=== PATIENT | female | born 1960 | race Caucasian/White ===

== ENCOUNTER 2017-11-22 12:27 | Emergency (ER) | payer MEDICARE ==
--- NOTE | 2017-11-22 14:20 | EDPHYS ---
Physician Documentation [facility] Name: Helena Tracy Age: 57 yrs Sex: Female : 1960 Arrival Date: 11/22/2017 Time: 12:31 Bed 18 Private MD: ED Physician Topher Rajan HPI: 11/22 14:16 This 57 yrs old Female presents to ER via Ambulatory with complaints of Ear kb Pain, Nausea. 14:16 The patient presents with drainage, that is purulent, hearing loss, partial, pain, kb moderate. The complaints affect the right ear and left ear. Onset: The symptoms/episode began/occurred last night. Modifying factors: The symptoms are alleviated by nothing, the symptoms are aggravated by nothing. Associated signs and symptoms: Pertinent positives: nausea. Severity of symptoms: At their worst the symptoms were moderate in the emergency department the symptoms are unchanged. The patient has not experienced similar symptoms in the past. The patient has not recently seen a physician. Historical: - Allergies: 12:42 Latex, Natural Rubber; hj 12:42 Medrol; hj 12:42 PENICILLINS; hj - Home Meds: 12:42 dicyclomine 10 mg Oral cap 1 cap 3 times per day [Active]; famotidine 40 mg Oral tab hj nightly [Active]; hydroxyzine HCl 25 mg Oral tab daily [Active]; Lexapro 20 mg Oral tab 1 tab once daily [Active]; Linzess 145 mcg Oral cap 1 cap once daily [Active]; losartan 100 mg Oral tab 1 tab once daily [Active]; metoprolol tartrate 25 mg Oral tab 1 tab once daily [Active]; omeprazole 40 mg Oral cpDR 1 cap once daily [Active]; trazodone 100 mg Oral tab nightly [Active]; Vistaril 25 mg Oral cap daily [Active]; - PMHx: 12:42 cervical radiculopathy; Depression; Diabetes - NIDDM; DVT; RLE; Hernia; Hypertension; hj Osteopenia; - PSHx: 12:42 Knee surgery; foot; Tubal ligation; hj - Immunization history:: Adult Immunizations up to date. - Social history:: Smoking status: Patient uses tobacco products, smokes one pack cigarettes per day. ROS: 14:16 Constitutional: Negative for fever, chills, and weight loss, Cardiovascular: Negative kb for chest pain, palpitations, and edema, Respiratory: Negative for shortness of breath, cough, wheezing, and pleuritic chest pain, Abdomen/GI: Negative for abdominal pain, vomiting, diarrhea, and constipation. +nausea MS/Extremity: Negative for injury and deformity, Skin: Negative for injury, rash, and discoloration. 14:16 ENT: Positive for drainage from ear(s), ear pain, hearing loss. 14:16 Neuro: Positive for dizziness. Exam: 14:16 Constitutional: This is a well developed, well nourished patient who is awake, alert, kb and in no acute distress. Head/Face: Normocephalic, atraumatic. Chest/axilla: Normal chest wall appearance and motion. Nontender with no deformity. No lesions are appreciated. Cardiovascular: Regular rate and rhythm with a normal S1 and S2. No gallops, murmurs, or rubs. Normal PMI, no JVD. No pulse deficits. Respiratory: Lungs have equal breath sounds bilaterally, clear to auscultation and percussion. No rales, rhonchi or wheezes noted. No increased work of breathing, no retractions or nasal flaring. Abdomen/GI: Soft, non-tender, with normal bowel sounds. No distension or tympany. No guarding or rebound. No evidence of tenderness throughout. Skin: Warm, dry with normal turgor. Normal color with no rashes, no lesions, and no evidence of cellulitis. MS/ Extremity: Pulses equal, no cyanosis. Neurovascular intact. Full, normal range of motion. Neuro: Awake and alert, GCS 15, oriented to person, place, time, and situation. Cranial nerves II-XII grossly intact. Motor strength 5/5 in all extremities. Sensory grossly intact. Cerebellar exam normal. Normal gait. 14:16 ENT: External ear(s): are unremarkable, Ear canal(s): are normal, TM's: bulging, bilaterally, fluid levels, bilaterally, Nose: is normal, Mouth: is normal. Vital Signs: 12:43 BP 151 / 99; Pulse 60; Resp 18; Temp 97.8(TE); Pulse Ox 100% on R/A; Weight 79.38 kg; hj Height 5 ft. 5 in. (165.10 cm); Pain 8/10; 14:13 BP 145 / 86; Pulse 68; Resp 16; Pulse Ox 99% on R/A; Pain 6/10; em 12:43 Body Mass Index 29.12 (79.38 kg, 165.10 cm) MDM: 14:01 Patient medically screened. kb 14:18 Data reviewed: vital signs, nurses notes. Data interpreted: Pulse oximetry: on room air kb is 100 %. Interpretation: normal. Counseling: I had a detailed discussion with the patient and/or guardian regarding: the historical points, exam findings, and any diagnostic results supporting the discharge/admit diagnosis, the need for outpatient follow up, an ENT specialist, a family practitioner, to return to the emergency department if symptoms worsen or persist or if there are any questions or concerns that arise at home. Administered Medications: No medications were administered Disposition: 18:39 Co-signature as Attending Physician, Topher Rajan MD. ma2 Disposition: 11/22/17 14:19 Discharged to Home. Impression: Otitis media, unspecified, bilateral. - Condition is Stable. - Discharge Instructions: Otitis Media, Adult, [id number]. - Prescriptions for Zithromax Z- Antonio 250 mg Oral Tablet - take 1 tablet by ORAL route as directed for 5 days Day 1 - take two (2) tablets one time. Day 2, 3, 4 , 5 take one (1) tablet once daily.; 6 tablet. - Medication Reconciliation Form, Thank You Letter, Antibiotic Education, Prescription Opioid Use form. - Follow up: Emergency Department; When: As needed; Reason: Worsening of condition. Follow up: Private Physician; When: 2 - 3 days; Reason: Recheck today's complaints, Continuance of care, Re-evaluation by your physician. Signatures: Nakita Rodriguez, STEWART-C CRUTCHING CONTRACTOR-Chase Whalen, DRESS FINISHER DRESS FINISHER Martin Post, RN RN Topher Renteria MD MD ma2
--- NOTE | 2017-11-22 14:20 | ER ---
Nurse's Notes [facility] Name: Helena Tracy Age: 57 yrs Sex: Female : 1960 Arrival Date: 11/22/2017 Time: 12:31 Bed 18 Private MD: Diagnosis: Otitis media, unspecified, bilateral Presentation: 11/22 12:40 Presenting complaint: Patient states: i woke up this morning with a green pus on my R hj ear and my L ear is hurting and i couldn't hear that much on both ears; denies fever, reports chills;. Transition of care: patient was not received from another setting of care. Onset of symptoms was November 22, 2017. Care prior to arrival: None. 12:40 Method Of Arrival: Ambulatory 12:40 Acuity: MARYANN 4 hj Triage Assessment: 12:42 General: Appears in no apparent distress. uncomfortable, Behavior is calm, cooperative, hj appropriate for age. Pain: Complains of pain in right ear and left ear Pain currently is 9 out of 10 on a pain scale. EENT: Reports pain in left ear and right ear. Historical: - Allergies: 12:42 Latex, Natural Rubber; hj 12:42 Medrol; hj 12:42 PENICILLINS; hj - Home Meds: 12:42 dicyclomine 10 mg Oral cap 1 cap 3 times per day [Active]; famotidine 40 mg Oral tab hj nightly [Active]; hydroxyzine HCl 25 mg Oral tab daily [Active]; Lexapro 20 mg Oral tab 1 tab once daily [Active]; Linzess 145 mcg Oral cap 1 cap once daily [Active]; losartan 100 mg Oral tab 1 tab once daily [Active]; metoprolol tartrate 25 mg Oral tab 1 tab once daily [Active]; omeprazole 40 mg Oral cpDR 1 cap once daily [Active]; trazodone 100 mg Oral tab nightly [Active]; Vistaril 25 mg Oral cap daily [Active]; - PMHx: 12:42 cervical radiculopathy; Depression; Diabetes - NIDDM; DVT; RLE; Hernia; Hypertension; hj Osteopenia; - PSHx: 12:42 Knee surgery; foot; Tubal ligation; hj - Immunization history:: Adult Immunizations up to date. - Social history:: Smoking status: Patient uses tobacco products, smokes one pack cigarettes per day. Screenin:00 Abuse screen: Denies threats or abuse. Nutritional screening: No deficits noted. em Tuberculosis screening: No symptoms or risk factors identified. Fall Risk None identified. Assessment: 14:00 General: Appears in no apparent distress. comfortable, Behavior is calm, cooperative. em General: Reports "woke up with green gunk in my hair this morning that was coming from my ears". Pain: Complains of pain in left ear and right ear Pain does not radiate. Pain currently is 8 out of 10 on a pain scale. Pain began 1 day ago. Neuro: Cardiovascular: Capillary refill < 3 seconds Patient's skin is warm and dry. Respiratory: Airway is patent Respiratory effort is even, unlabored, Respiratory pattern is regular, symmetrical. GI: Abdomen is round non-distended. : No signs and/or symptoms were reported regarding the genitourinary system. EENT: Ear canal w/ drainage noted from left ear and right ear. Derm: Skin is intact, Skin is pink, warm \\T\\ dry. Musculoskeletal: Range of motion: intact in all extremities. Vital Signs: 12:43 BP 151 / 99; Pulse 60; Resp 18; Temp 97.8(TE); Pulse Ox 100% on R/A; Weight 79.38 kg; hj Height 5 ft. 5 in. (165.10 cm); Pain 8/10; 14:13 BP 145 / 86; Pulse 68; Resp 16; Pulse Ox 99% on R/A; Pain 6/10; em 12:43 Body Mass Index 29.12 (79.38 kg, 165.10 cm) ED Course: 12:31 Patient arrived in ED. mr 12:41 Triage completed. hj 12:43 Arm band placed on left wrist. hj 13:55 Chase Whitaker LVN is Primary Nurse. em 14:00 Patient has correct armband on for positive identification. Bed in low position. Call em light in reach. Side rails up X2. 14:00 No provider procedures requiring assistance completed. Patient did not have IV access em during this emergency room visit. 14:01 Nakita Rodriguez FNP-C is PHCP. rafi 14:01 Topher Rajan MD is Attending Physician. kb Administered Medications: No medications were administered Outcome: 14:19 Discharge ordered by . rafi 14:26 Discharged to home ambulatory. em 14:26 Condition: good 14:26 Discharge instructions given to patient, Instructed on discharge instructions, follow up and referral plans. medication usage, Demonstrated understanding of instructions, follow-up care, medications, Prescriptions given X 1. 14:33 Patient left the ED. em Signatures: Nakita Rodriguez, STEWART-C DUST CONTROL ENGINEER-Serena Morton mr WhitakerChase, CARD ROOM MANAGER CARD ROOM MANAGER em Martin Capps, RN RN hj Corrections: (The following items were deleted from the chart) 12:44 12:43 Pulse 60bpm; Resp 18bpm; Pulse Ox 100% RA; Temp 97.8F Temporal; 79.38 kg; Height hj 5 ft. 5 in.; BMI: 29.1; Pain 8/10; hj
[2017-11-22 14:39] VITALS: TEMP 97.8
[2017-11-22 14:40] VITALS: BP 145/86; O2SAT 99
== END 2017-11-22 14:33 | disposition home or self-care (01) ==
LOC: ER 12:27
DX: H66.93 Otitis media, unspecified, bilateral (principal); F17.210 Nicotine dependence, cigarettes, uncomplicated; I10 Essential (primary) hypertension; E11.9 Type 2 diabetes mellitus without complications; F32.9 Major depressive disorder, single episode, unspecified; Z88.0 Allergy status to penicillin; Z88.8 Allergy status to other drugs, medicaments and biological substances; Z91.040 Latex allergy status; Z91.048 Other nonmedicinal substance allergy status
CPT/HCPCS: 99282

== ENCOUNTER 2017-12-30 23:36 | Emergency (ER) | payer MEDICARE ==
[2017-12-31] MEDS ORDERED: NA CHLORIDE 0.9% 1,000 ML ONE (00:48)
[2017-12-31] MEDS ORDERED: NA CHLORIDE 0.9% 500 ML ONE (00:48)
[2017-12-31] MEDS ORDERED: PROMETHAZINE 25 MG/ML VIAL ONE (00:48)
[2017-12-31] MEDS ORDERED: MEPERIDINE HCL 25 MG/0.5 ML ONE (00:48)
[2017-12-31 00:52] LABS: Absolute Monocytes 0.6 K/uL (0.1-1.3); Absolute Neutrophil 10.9 K/uL (1.8-8.0); Basophils % 0.6 % (0-1.3); Eosinophils % 0.8 % (0-4.4); Hematocrit 39.9 % (36.0-45.0); Lymphocytes % 14.6 % (15.3-44.8); MCH 30.4 pg (27.0-35.0); MCV 92.9 fL (80-100); MPV 8.5 fL (7.6-11.3); Monocytes % 4.4 % (3.3-12.3); RBC Red Blood Cell Count 4.29 M/uL (3.86-4.86)
[2017-12-31 01:02] LABS: Potassium 3.3 mEq/L (3.6-5.0)
[2017-12-31 01:08] LABS: Albumin 4.2 g/dL (3.2-5.5); Bilirubin Direct 0.1 mg/dL (0-0.2); Bilirubin Total 0.5 mg/dL (0.3-1.2); Protein, Total 7.2 g/dL (6.0-8.3)
[2017-12-31 01:26] LABS: Urine Blood 2+ (NEG); Urine Glucose NEGATIVE (NEG); Urine Protein 1+ (NEG); Urine Specific Gravity 1.015 (1.005-1.030); Urine pH 6.5 (5.0-7.0)
[2017-12-31 01:31] LABS: Urine Bacteria <20 /HPF (<20); Urine Culture Reflex Order REFLEXED; Urine RBC >50 /HPF (NONE SEEN); Urine Trichomonas PRESENT (NONE SEEN)
[2017-12-31] MEDS ORDERED: POTASSIUM CL SA 10 MEQ TAB PO ONE (01:44)
[2017-12-31] MEDS ORDERED: METRONIDAZOLE 500mg IVPB 500 MG/100 ML BAG IV ONE (05:00)
[2017-12-31] MEDS ORDERED: Levofloxacin500mg IV 500 MG/100 ML BAG IV ONE (05:00)
--- NOTE | 2017-12-31 06:30 | ER ---
Nurse's Notes [facility] Name: Helena Tracy Age: 57 yrs Sex: Female : 1960 Arrival Date: 12/30/2017 Time: 23:37 Bed 14 Private MD: Diagnosis: Abdominal pain. Colitis. Urinary tract infection. Possile pancreatic lesions Presentation: 12/31 00:14 Presenting complaint: Patient states: "My lower abdomen hurts, I went to have a BM and bs1 I saw blood in the toilet and when I wiped it came from the front and back, I was sweaty and started throwing up, I have a hx of diverticulitis.". Transition of care: patient was not received from another setting of care. Onset of symptoms was December 30, 2017. Initial Sepsis Screen: Does the patient meet any 2 criteria? No. Patient's initial sepsis screen is negative. Does the patient have a suspected source of infection? No. Patient's initial sepsis screen is negative. Care prior to arrival: None. 00:14 Method Of Arrival: Ambulatory bs1 00:14 Acuity: MARYANN 3 bs1 Historical: - Allergies: 00:20 Latex, Natural Rubber; bs1 00:20 Medrol; bs1 00:20 PENICILLINS; bs1 - Home Meds: 00:20 dicyclomine 10 mg Oral cap 2 caps [Active]; losartan 100 mg Oral tab 1 tab once daily bs1 [Active]; omeprazole 40 mg Oral cpDR 1 cap once daily [Active]; metoprolol tartrate 25 mg Oral tab 1 tab once daily [Active]; trazodone 100 mg Oral tab nightly [Active]; hydroxyzine HCl 25 mg Oral tab daily [Active]; Lexapro 20 mg Oral tab 1 tab once daily [Active]; Wellbutrin Oral [Active]; - PMHx: 00:20 cervical radiculopathy; Depression; Diabetes - NIDDM; DVT; RLE; Hernia; Hypertension; bs1 Osteopenia; Diverticulitis; - PSHx: 00:20 Knee surgery; bs1 - Immunization history:: Adult Immunizations. - Social history:: Smoking status: Patient uses tobacco products, smokes one pack cigarettes per day. Screenin:22 Abuse screen: Denies threats or abuse. Denies injuries from another. Nutritional bs1 screening: No deficits noted. Tuberculosis screening: No symptoms or risk factors identified. Fall Risk None identified. Assessment: 00:27 General: Appears in no apparent distress. uncomfortable, Behavior is calm, cooperative, bs1 appropriate for age. Pain: Complains of pain in bilateral lower abdomen Pain does not radiate. Neuro: Level of Consciousness is awake, alert, obeys commands, Oriented to person, place, time, situation, Appropriate for age Shoemaker Apprentice are equal bilaterally. Cardiovascular: Denies chest pain, lightheadedness, palpitations, shortness of breath, Heart tones S1 S2 present Capillary refill < 3 seconds Patient's skin is warm and dry. Respiratory: Airway is patent Trachea midline Respiratory effort is even, unlabored, Respiratory pattern is regular, symmetrical, Breath sounds are clear bilaterally. GI: Abdomen is round Bowel sounds present X 4 quads. Abdomen is tender to palpation in right lower quadrant and left lower quadrant Reports lower abdominal pain, diarrhea, rectal bleeding, bloody stool, nausea, vomiting. : Reports vaginal bleeding that is. EENT: No deficits noted. No signs and/or symptoms were reported regarding the EENT system. Derm: Skin is intact, Skin is pink, warm \\T\\ dry. Musculoskeletal: Capillary refill < 3 seconds, Range of motion: intact in all extremities. 01:30 Reassessment: No changes from previously documented assessment. Patient and/or family bs1 updated on plan of care and expected duration. Pain level reassessed. Patient is alert, oriented x 3, equal unlabored respirations, skin warm/dry/pink. 02:29 Reassessment: Patient appears in no apparent distress at this time. No changes from bs1 previously documented assessment. Patient and/or family updated on plan of care and expected duration. Pain level reassessed. Patient is alert, oriented x 3, equal unlabored respirations, skin warm/dry/pink. Patient states symptoms have improved. 03:36 Reassessment: Pending CT results. bs1 04:40 Reassessment: No changes from previously documented assessment. Patient and/or family bs1 updated on plan of care and expected duration. Pain level reassessed. Patient is alert, oriented x 3, equal unlabored respirations, skin warm/dry/pink. 05:30 Reassessment: Patient appears in no apparent distress at this time. No changes from bs1 previously documented assessment. Patient and/or family updated on plan of care and expected duration. Pain level reassessed. 06:36 Reassessment: No changes from previously documented assessment. Patient states feeling bs1 better. Vital Signs: 00:21 BP 117 / 79; Pulse 64; Resp 16; Temp 97.9(O); Pulse Ox 100% on R/A; Weight 74.84 kg; bs1 Height 5 ft. 4 in. (162.56 cm); Pain 8/10; 01:45 BP 115 / 68; Pulse 66; Resp 17; Pulse Ox 99% on R/A; Pain 4/10; bs1 03:33 BP 134 / 85; Pulse 59; Resp 16; Pulse Ox 97% on R/A; mt 04:30 BP 132 / 84; Pulse 54; Resp 16; Pulse Ox 95% on R/A; bs1 05:53 BP 137 / 87; Pulse 55; Resp 15; Pulse Ox 100% on R/A; bs1 00:21 Body Mass Index 28.32 (74.84 kg, 162.56 cm) bs1 ED Course: 12/30 23:37 Patient arrived in ED. ds1 23:47 Jefferson Westfall MD is Attending Physician. pkl 12/31 00:02 Inserted saline lock: 22 gauge in left antecubital area, using aseptic technique. bs1 00:12 Sharon Guadalupe, RN is Primary Nurse. bs1 00:17 Triage completed. bs1 00:23 Patient has correct armband on for positive identification. Bed in low position. Call bs1 light in reach. Side rails up X 1. Pulse ox on. NIBP on. 01:[address] that patient finished oral contrast at 0100. bs1 02:30 Arm band placed on left wrist. bs1 02:[address] via wheelchair. cw1 02:50 CT completed. Patient moved back from CT. cw1 02:57 CT Abd/Pelvis - W/Contrast In Process Unspecified. EDMS 06:28 Gill Bell MD is Referral Physician. pkl 06:37 No provider procedures requiring assistance completed. IV discontinued, bleeding bs1 controlled, No redness/swelling at site. Pressure dressing applied. Administered Medications: 01:00 Drug: NS 0.9% 500 ml Route: IV; Rate: bolus; Site: left antecubital; bs1 01:00 Drug: Demerol 25 mg Route: IVP; Site: left antecubital; bs1 03:37 Follow up: Response: No adverse reaction bs1 01:00 Drug: Phenergan 12.5 mg Route: IVP; Site: left antecubital; bs1 03:37 Follow up: Response: No adverse reaction bs1 01:46 Drug: K-Dur 20 mEq Route: PO; bs1 03:36 Follow up: Response: No adverse reaction bs1 02:23 Drug: NS 0.9% 1000 ml Route: IV; Rate: 100 ml/hr; Site: left antecubital; bs1 05:11 Drug: LevaQUIN 500 mg Volume: 100 ml; Route: IVPB; Infused Over: 60 mins; Site: left bs1 antecubital; 05:11 Drug: Flagyl 500 mg Volume: 100 ml; Route: IVPB; Rate: 200 ml/hr; Infused Over: 30 bs1 mins; Site: left antecubital; 05:43 Follow up: IV Status: Completed infusion ak1 06:40 Follow up: IV Status: Completed infusion bs1 Point of Care Testing: Guaiac: 00:45 Stool Guaiac: Negative; Stool Hemoccult Control: Pass; bs1 Outcome: 06:29 Discharge ordered by . pkl 06:37 Discharged to home ambulatory. bs1 06:37 Condition: stable 06:37 Discharge instructions given to patient, Instructed on discharge instructions, follow up and referral plans. medication usage, Demonstrated understanding of instructions, follow-up care, medications, Prescriptions given X 2. 06:37 Patient left the ED. bs1 Signatures: Dispatcher [employer] EDMS Jefferson Westfall MD MD pkl Sanford, Demi ds1 Woodley, Crystal cw1 Jinny Schwartz RN RN ak1 Elsa Almanzar mt, Brittany, RN RN bs1
--- NOTE | 2017-12-31 06:30 | EDPHYS ---
Physician Documentation [facility] Name: Helena Tracy Age: 57 yrs Sex: Female : 1960 Arrival Date: 12/30/2017 Time: 23:37 Bed 14 Private MD: ED Physician Jefferson Westfall HPI: 12/31 00:39 This 57 yrs old Female presents to ER via Ambulatory with complaints of pkl Rectal Bleeding, Abdominal Pain. 00:39 The patient presents to the emergency department with bleeding from the rectum/anus, pkl that is mild. Onset: The symptoms/episode began/occurred today. Associate signs and symptoms: Pertinent positives: abdominal pain in the right lower quadrant and left lower quadrant, diarrhea. The patient has experienced a previous episode. Historical: - Allergies: 00:20 Latex, Natural Rubber; bs1 00:20 Medrol; bs1 00:20 PENICILLINS; bs1 - Home Meds: 00:20 dicyclomine 10 mg Oral cap 2 caps [Active]; losartan 100 mg Oral tab 1 tab once daily bs1 [Active]; omeprazole 40 mg Oral cpDR 1 cap once daily [Active]; metoprolol tartrate 25 mg Oral tab 1 tab once daily [Active]; trazodone 100 mg Oral tab nightly [Active]; hydroxyzine HCl 25 mg Oral tab daily [Active]; Lexapro 20 mg Oral tab 1 tab once daily [Active]; Wellbutrin Oral [Active]; - PMHx: 00:20 cervical radiculopathy; Depression; Diabetes - NIDDM; DVT; RLE; Hernia; Hypertension; bs1 Osteopenia; Diverticulitis; - PSHx: 00:20 Knee surgery; bs1 - Immunization history:: Adult Immunizations. - Social history:: Smoking status: Patient uses tobacco products, smokes one pack cigarettes per day. ROS: 00:39 Eyes: Negative for injury, pain, redness, and discharge, ENT: Negative for injury, pkl pain, and discharge, Neck: Negative for injury, pain, and swelling, Cardiovascular: Negative for chest pain, palpitations, and edema, Respiratory: Negative for shortness of breath, cough, wheezing, and pleuritic chest pain. 00:39 Abdomen/GI: Positive for abdominal pain, diarrhea, rectal bleeding, of the right lower quadrant and left lower quadrant. 00:39 Back: Negative for acute changes. 00:39 : Negative for urinary symptoms. 00:39 MS/extremity: Negative for acute changes. 00:39 Skin: Negative for rash. 00:39 Neuro: Negative for altered mental status. Exam: 00:39 Head/Face: Normocephalic, atraumatic. Eyes: Pupils equal round and reactive to light, pkl extra-ocular motions intact. Lids and lashes normal. Conjunctiva and sclera are non-icteric and not injected. Cornea within normal limits. Periorbital areas with no swelling, redness, or edema. ENT: Nares patent. No nasal discharge, no septal abnormalities noted. Tympanic membranes are normal and external auditory canals are clear. Oropharynx with no redness, swelling, or masses, exudates, or evidence of obstruction, uvula midline. Mucous membranes moist. Neck: Trachea midline, no thyromegaly or masses palpated, and no cervical lymphadenopathy. Supple, full range of motion without nuchal rigidity, or vertebral point tenderness. No Meningismus. Chest/axilla: Normal chest wall appearance and motion. Nontender with no deformity. No lesions are appreciated. Cardiovascular: Regular rate and rhythm with a normal S1 and S2. No gallops, murmurs, or rubs. Normal PMI, no JVD. No pulse deficits. Respiratory: Lungs have equal breath sounds bilaterally, clear to auscultation and percussion. No rales, rhonchi or wheezes noted. No increased work of breathing, no retractions or nasal flaring. 00:39 Abdomen/GI: Bowel sounds: normal, Palpation: soft, mild abdominal tenderness, in the right lower quadrant and left lower quadrant, Rectal exam: Stool: guaiac negative. 00:39 Back: Exam negative for acute changes. 00:39 : Exam negative for acute changes. 00:39 Musculoskeletal/extremity: Exam is negative for acute changes. 00:39 Skin: Exam negative for rash. 00:39 Neuro: Orientation: is normal, Mentation: is normal, Cranial nerves: grossly normal, Motor: is normal. Vital Signs: 00:21 BP 117 / 79; Pulse 64; Resp 16; Temp 97.9(O); Pulse Ox 100% on R/A; Weight 74.84 kg; bs1 Height 5 ft. 4 in. (162.56 cm); Pain 8/10; 01:45 BP 115 / 68; Pulse 66; Resp 17; Pulse Ox 99% on R/A; Pain 4/10; bs1 03:33 BP 134 / 85; Pulse 59; Resp 16; Pulse Ox 97% on R/A; mt 04:30 BP 132 / 84; Pulse 54; Resp 16; Pulse Ox 95% on R/A; bs1 05:53 BP 137 / 87; Pulse 55; Resp 15; Pulse Ox 100% on R/A; bs1 00:21 Body Mass Index 28.32 (74.84 kg, 162.56 cm) bs1 MDM: 12/30 23:47 Patient medically screened. pkl 12/31 06:23 Data reviewed: vital signs, nurses notes, lab test result(s), radiologic studies, CT pkl scan. ED course: Patient feeling better. Discussed lab. and CT findings with patient. To follow up with Cristofer Bell ) in 2 to 3 days. Talked to ALAN Klein ( Dr. Ray PHILLIPS ). Will schedule patient when patient call this morning.. 12/31 00:38 Order name: Amylase, Serum; Complete Time: 01:37 pkl 12/31 00:38 Order name: Basic Metabolic Panel; Complete Time: 01:37 pkl 12/31 00:38 Order name: CBC with Diff; Complete Time: : pkl 12/31 00:38 Order name: Creatinine for Radiology; Complete Time: 01:37 pkl 12/31 00:38 Order name: Hepatic Function; Complete Time: : pkl 12/31 00:38 Order name: Lipase; Complete Time: : pkl 12/31 00:38 Order name: Urine Microscopic Only; Complete Time: : pkl 12/31 00:38 Order name: CT Abd/Pelvis - W/Contrast pkl 12/31 01:17 Order name: Urine Dipstick--Ancillary (enter results); Complete Time: 01:37 rg2 12/31 01:33 Order name: Urine Culture EDMS 12/31 00:38 Order name: IV Saline Lock; Complete Time: 00:46 pkl 12/31 00:38 Order name: Labs collected and sent; Complete Time: 00:46 pkl 12/31 00:38 Order name: Urine Dipstick-Ancillary (obtain specimen); Complete Time: 01:06 pkl Administered Medications: 01:00 Drug: NS 0.9% 500 ml Route: IV; Rate: bolus; Site: left antecubital; bs1 01:00 Drug: Demerol 25 mg Route: IVP; Site: left antecubital; bs1 03:37 Follow up: Response: No adverse reaction bs1 01:00 Drug: Phenergan 12.5 mg Route: IVP; Site: left antecubital; bs1 03:37 Follow up: Response: No adverse reaction bs1 01:46 Drug: K-Dur 20 mEq Route: PO; bs1 03:36 Follow up: Response: No adverse reaction bs1 02:23 Drug: NS 0.9% 1000 ml Route: IV; Rate: 100 ml/hr; Site: left antecubital; bs1 05:11 Drug: LevaQUIN 500 mg Volume: 100 ml; Route: IVPB; Infused Over: 60 mins; Site: left bs1 antecubital; 05:11 Drug: Flagyl 500 mg Volume: 100 ml; Route: IVPB; Rate: 200 ml/hr; Infused Over: 30 bs1 mins; Site: left antecubital; 05:43 Follow up: IV Status: Completed infusion ak1 06:40 Follow up: IV Status: Completed infusion bs1 Point of Care Testing: Guaiac: 00:45 Stool Guaiac: Negative; Stool Hemoccult Control: Pass; bs1 Disposition: 12/31/17 06:29 Discharged to Home. Impression: Abdominal pain. Colitis. Urinary tract infection. Possile pancreatic lesions. - Condition is Stable. - Prescriptions for Ultram 50 mg Oral Tablet - take 1 tablet by ORAL route every 8 hours As needed; 20 tablet. Cipro 500 mg Oral Tablet - take 1 tablet by ORAL route every 12 hours for 7 days; 14 tablet. - Medication Reconciliation Form, Thank You Letter, Antibiotic Education, Prescription Opioid Use form. - Follow up: Gill Bell MD; When: 2 - 3 days; Reason: Re-evaluation by your physician. - Problem is new. - Symptoms have improved. Signatures: Dispatcher [employer] EDJefferson Damon MD MD pkl Sharon Guadalupe, RN RN bs1 Jinny Schwartz RN ak1
[2017-12-31 06:45] VITALS: TEMP 97.9
[2017-12-31 06:50] VITALS: BP 137/87; O2SAT 100
--- NOTE | 2017-12-31 08:12 | RAD REPORT ---
EXAM DESCRIPTION: CT - Abdomen Pelvis W Contrast - 12/31/2017 6:13 am CLINICAL HISTORY: Abdominal pain, blood in stool, diabetes, prior diverticulitis A preliminary written report was provided at the time of the study, and the report was reviewed prio r to final dictation. The patient's 2008 CT study was not available at the time of the preliminary re port. COMPARISON: CT study February 2009 TECHNIQUE: Biphasic, helical CT imaging of the abdomen and pelvis was performed following 100 ml non -ionic IV contrast. Oral contrast was given. All CT scans are performed using dose optimization technique as appropriate and may include automated exposure control or mA/KV adjustment according to patient size. FINDINGS: No suspicious findings in the lung bases. No pericardial thickening or effusion. The liver, spleen, and pancreas show no suspicious findings. Gallbladder and biliary tree are also wi thout suspicious finding. Symmetric renal function is seen with no hydronephrosis or suspicious renal mass. No pyelonephritis o r acute renal parenchymal process. Benign renal cysts are present. Right adrenal gland is normal. An enhancing 3 centimeter left adrenal mass is present. This is unchanged from 2009. No gastric dilatation or gastric wall thickening. Ingested medication is seen in the antrum of the st omach. Moderately large duodenal diverticulum is seen along the C-loop. No acute component seen. No d ilated small bowel or focal small bowel abnormality. No appendicitis findings are seen. Oral contrast has reached the right side of the transverse colon. There is an abrupt transition to decompressed le ft side colon from mid transverse to the rectum. There is mild diverticulosis. No focal mass. No josé luis urable stranding in the adjacent fat. At the transition point there is no mass or focal abnormality i dentifiable. No free air, free fluid or inflammatory stranding. No hernia, mass or bulky lymphadenopathy. No suspicious bony findings. IMPRESSION: No bowel obstruction, free air or surgically emergent finding. Left-sided colon is decompressed with a mild diverticulosis pattern. At the abrupt transition in the mid transverse colon there is no mass or adjacent edema or inflammatory stranding. Patient could have a mild underlying colitis. Post inflammatory stricture of the colon is possible. T his can be monitored with follow-up imaging to determine if the contrast column shows antegrade movem ent. [place] of the ascending colon a few cm from the ileocecal valve are prominent. Again, this may be a pe ristalsis artifact. CT imaging is limited in assessment. Follow-up colonoscopy may be helpful to eval uate the left-side transverse colon, mid transverse colon transition spot and the ascending colon fin ding. A 3 centimeter left adrenal mass has not changed since 2008 and requires no additional follow-up.
== END 2017-12-31 06:37 | disposition home or self-care (01) ==
LOC: ER 23:36
DX: K52.9 Noninfective gastroenteritis and colitis, unspecified (principal); N39.0 Urinary tract infection, site not specified; F17.210 Nicotine dependence, cigarettes, uncomplicated; I10 Essential (primary) hypertension; E11.9 Type 2 diabetes mellitus without complications; F32.9 Major depressive disorder, single episode, unspecified; Z86.718 Personal history of other venous thrombosis and embolism; Z88.0 Allergy status to penicillin; Z88.8 Allergy status to other drugs, medicaments and biological substances; Z91.040 Latex allergy status; Z91.048 Other nonmedicinal substance allergy status
CPT/HCPCS: 36415; 74177; 80048; 80076; 82150; 83690; 85025; 87086; 87088; J2175; J2550; J7030; Q9967; 81003; 81015; 96365; 96375; 99284

== ENCOUNTER 2018-01-06 13:25 | Emergency (ER) | payer MEDICARE ==
[2018-01-06] MEDS ORDERED: NA CHLORIDE 0.9% 1,000 ML ONE (14:21)
--- NOTE | 2018-01-06 14:34 | EKG ---
Test Date: 2018-01-06 Test Time: 14:03:44 Teletype Mechanic: SHARA MEASUREMENT RESULTS: Intervals: Rate: 69 WV: 184 QRSD: 68 QT: 414 QTc: 443 Lester: P: 31 WV: 184 QRS: 34 T: 57 INTERPRETIVE STATEMENTS: Normal sinus rhythm Normal ECG Compared to ECG 10/26/2005 12:35:00 No significant changes Electronically Signed On 01-06-18 14:33:36 CDT by John Mclaughlin
[2018-01-06 14:58] LABS: Absolute Lymphocytes (CBC) 1.7 K/uL (0.7-4.9); Absolute Monocytes 0.4 K/uL (0.1-1.3); Absolute Neutrophil 7.8 K/uL (1.8-8.0); Eosinophils % 1.4 % (0-4.4); Hematocrit 38.9 % (36.0-45.0); Lymphocytes % 16.8 % (15.3-44.8); MCH 30.9 pg (27.0-35.0); MCV 92.2 fL (80-100); MPV 8.1 fL (7.6-11.3); Monocytes % 4.2 % (3.3-12.3); RBC Red Blood Cell Count 4.22 M/uL (3.86-4.86)
[2018-01-06 15:03] LABS: Bicarbonate 27 mEq/L (21-31); Glucose Level 104 mg/dL (65-120); Potassium 4.1 mEq/L (3.6-5.0); Sodium Level 138 mEq/L (135-145)
[2018-01-06 15:07] LABS: Protime INR 0.98
[2018-01-06 15:09] LABS: ALT/SGPT 12 IU/L (10-60); AST/SGOT 14 IU/L (10-42); Albumin 3.6 g/dL (3.2-5.5); Alkaline Phosphatase 89 IU/L (42-121); BUN Blood Urea Nitrogen 10 mg/dL (6-20); Bilirubin Direct 0.1 mg/dL (0-0.2); Bilirubin Total 0.4 mg/dL (0.3-1.2); Protein, Total 6.5 g/dL (6.0-8.3)
[2018-01-06 15:12] LABS: Alcohol Serum/Plasma < 10 mg/dl; Salicylates Level < 4.0 mg/dl (<30)
--- NOTE | 2018-01-06 15:46 | ER ---
Nurse's Notes [facility] Name: Helena Tracy Age: 57 yrs Sex: Female : 1960 Arrival Date: 01/06/2018 Time: 13:35 Bed 24 Private MD: Diagnosis: Suicidal ideations Presentation: 01/06 13:36 Presenting complaint: Patient states: "My mom about a week ago, I'm suppose to aj1 bury her tomorrow. I just feel like I cant function." When asked if she planned on hurting herself patient states "I've thought about it, I just haven't acted on it yet." Patient denies having a plan, but admits to a previous suicide attempt in 2005 when she took "a bunch of pills" Patient appears anxious, crying. Transition of care: patient was not received from another setting of care. Onset of symptoms was December 2017. Initial Sepsis Screen: Does the patient meet any 2 criteria? No. Patient's initial sepsis screen is negative. Does the patient have a suspected source of infection? No. Patient's initial sepsis screen is negative. Care prior to arrival: None. 13:36 Method Of Arrival: EMS aj1 13:36 Acuity: MARYANN 2 aj1 Triage Assessment: 13:43 General: Appears distressed, Behavior is anxious, crying. Pain: Denies pain. aj1 Historical: - Allergies: 13:43 Latex, Natural Rubber; aj1 13:43 Medrol; aj1 13:43 PENICILLINS; aj1 - Home Meds: 13:43 dicyclomine 10 mg Oral cap 2 caps daily [Active]; omeprazole 40 mg Oral cpDR 1 cap once aj1 daily [Active]; Cipro 500 mg Oral tab 1 tab every 12 hours for UTI [Active]; buspirone 5 mg Oral tab 1 tab 2 times per day [Active]; clonazepam 0.5 mg Oral tab 1 tab at bedtime [Active]; trazodone 50 mg oral tab every 8 hours as needed [Active]; losartan 100 mg Oral tab 1 tab once daily [Active]; - PMHx: 13:43 cervical radiculopathy; Depression; Diverticulitis; DVT; RLE; Hernia; Hypertension; aj1 Osteopenia; Diabetes - NIDDM; - Immunization history:: Adult Immunizations up to date. - Social history:: Smoking status: Patient uses tobacco products, smokes two packs cigarettes per day. Patient/guardian denies using alcohol, street drugs. - Family history:: not pertinent. Screenin:44 Abuse screen: Denies threats or abuse. Denies injuries from another. Nutritional aj1 screening: No deficits noted. Tuberculosis screening: No symptoms or risk factors identified. 16:10 Fall Risk None identified. aj1 Assessment: 13:44 General: Appears distressed, Behavior is anxious, crying. Pain: Denies pain. Neuro: aj1 Level of Consciousness is awake, alert, obeys commands, Oriented to person, place, time, situation. Cardiovascular: Patient's skin is warm and dry. Respiratory: Airway is patent Respiratory effort is even, unlabored, Respiratory pattern is regular, symmetrical. GI: No signs and/or symptoms were reported involving the gastrointestinal system. : No signs and/or symptoms were reported regarding the genitourinary system. EENT: No signs and/or symptoms were reported regarding the EENT system. Derm: No signs and/or symptoms reported regarding the dermatologic system. Skin is pink, warm \\T\\ dry. normal. Musculoskeletal: No signs and/or symptoms reported regarding the musculoskeletal system. Circulation, motion, and sensation intact. 14:30 Reassessment: Patient asking why we are doing blood work. Explained to patient that we aj1 need to clear her medically before being transferred to [facility]. Patient becomes extremely upset and agitated states that she was told by Mental health that she could come to the emergency room and get some meds and then she would be discharged home. Patient is crying, demanding that we give her clothes back and take out her IV so she can leave. States that she does not want to miss her mother's tomorrow. Explained to patient that we can't just let her leave until she is cleared by mental health. Patient remain upset, crying, demanding that IV be taken out. 14:35 Reassessment: VIKASH Weaver charge nurse at bedside to attempt to calm patient. Patient aj1 states that she was told by the [facility] officer that he would follow her here and clear her to come home. Patient agrees to stay while we attempt to call [facility] health. 14:40 Reassessment: Attempted to call mental health officer, was told that he would call us aj1 back. Notified patient that we were awaiting to hear back from the mental health officer. Patient states that she is not going to wait that long, she is going to take out the IV and leave. Notified Dr. Benitez that patient is attempting to leave. 14:44 Reassessment: Dr. Benitez at bedside to evaluate the patient, patient states that her mac1 daughter is in town and she wants to see her. Dr. Benitez told the patient to call her daughter and have her come to the ER so they can come up with a plan to ensure patient safety together. 15:01 Reassessment: Patient provided cordless phone to call daughter, states that she doesn't aj1 know the number and she needs her cell phone, patient was provided her cell phone. Patient now states that she doesn't have her daughter's number in her cell phone because she accidentally reset it last night. Patient was asked if she could call someone who would have her daughter's number and she states that she doesn't. Patient was asked if she could call anyone who would be willing to stay with her. Patient states she will try to contact someone. 15:25 Reassessment: Mental Health Gibson at bedside talking to patient. aj1 15:45 Reassessment: Family at bedside, Dr. Benitez at bedside to discuss plans for possible aj1 discharge. 16:09 Reassessment: Patient's step daughter Helena is at the bedside, states patient will aj1 stay with her. Psych: 13:47 Subjective: Patient's mood is sad, hopeless, Delusions are denied, Hallucinations are aj1 denied Having thoughts of suicide. Denies suicidal plan. Objective: Patient is cooperative, Speech is normal, Affect is flat. Interventions: Removed personal items and placed in bag. Patient placed in hospital gown. Searched person for dangerous items. Suicide Risk Assessment: Sad Person Scale: Sex of patient: Female: Score 0 points. Age of patient: Score 0 point if patient falls outside of specified age parameters. Depression: Score 1 point if signs of depression are present. Previous Attempt: Score 1 point if patient has previously attempted suicide. Substance Abuse: Score 0 point if patient does not abuse alcohol or drugs. Rational Thinking: Score 0 point if patient has rational thinking. Social Support: Score 1 point if social support is lacking and/or unavailable. Organized Plan: Score 0 if patient did not have an organized plan in place. Relationship: Score 1 point if patient is , , , or for a single male Chronic Sickness: Score 0 point if patient does not have a chronic illness, debilitating, or severe disorder. 13:49 Safety Checks: Personal items have been removed. Door is open. No visitors are present aj at this time. Pt denies substance abuse. Vital Signs: 13:43 BP 140 / 81; Pulse 90; Resp 18; Temp 98.8; Pulse Ox 99% on R/A; Weight 74.84 kg; Height aj1 5 ft. 5 in. (165.10 cm); Pain 0/10; 16:09 BP 132 / ???; Pulse 78; Resp 18; Pulse Ox 99% ; aj1 13:43 Body Mass Index 27.46 (74.84 kg, 165.10 cm) aj1 ED Course: 13:35 Patient arrived in ED. aj1 13:38 Triage completed. aj1 13:40 Lobito Benitez MD is Attending Physician. olive 13:43 Arm band placed on. aj1 13:44 Patient has correct armband on for positive identification. Sitter at bedside, patient aj1 changed into gown and personal belongings removed. All items were removed from patient's room. 13:44 No provider procedures requiring assistance completed. aj1 13:45 Safety Checks: Personal items have been removed The door is open or patient has been aj1 placed in a hallway bed/chair. There are no family/friend visitors at this time. 14:00 Safety Checks: Personal items have been removed The door is open or patient has been aj1 placed in a hallway bed/chair. There are no family/friend visitors at this time. 14:11 Marychuy Pike, RN is Primary Nurse. aj1 14:26 EKG done, by blood bank laboratory technologist. reviewed by Lobito Benitez MD. tc 14:30 Initial lab(s) drawn, by me, sent to lab. Inserted saline lock: 20 gauge in left aj1 antecubital area, using aseptic technique. Blood collected. 15:36 [facility] called at 1523 by Jaclyn. ag 16:10 IV discontinued, intact, bleeding controlled, No redness/swelling at site. Pressure aj1 dressing applied. Administered Medications: 14:37 Drug: NS 0.9% 1000 ml Route: IV; Rate: 1 bolus; Site: left antecubital; aj1 Outcome: 15:45 Discharge ordered by . olive 16:19 Patient left the ED. aj1 Signatures: Marychuy Pike RN RN aj1 Lobito Benitez MD MD cha Callis, Tiffany, bow tacker EKG Ttc Tere [place] ag
--- NOTE | 2018-01-06 15:46 | EDPHYS ---
Physician Documentation [facility] Name: Helena Tracy Age: 57 yrs Sex: Female : 1960 Arrival Date: 01/06/2018 Time: 13:35 Bed 24 Private MD: ED Physician Lobito Benitez HPI: 01/06 15:01 This 57 yrs old Female presents to ER via EMS with complaints of Suicidal olive Ideation. 15:01 The patient presents to the emergency department with depression, suicide ideation. olive Onset: The symptoms/episode began/occurred this morning. Past psychiatric history: Prior diagnosis: no previous psychiatric diagnosis known. Associated signs and symptoms: The patient has no apparent associated signs or symptoms. Severity of symptoms: At their worst the symptoms were moderate in the emergency department the symptoms are unchanged. The patient has not experienced similar symptoms in the past. Historical: - Allergies: 13:43 Latex, Natural Rubber; aj1 13:43 Medrol; aj1 13:43 PENICILLINS; aj1 - Home Meds: 13:43 dicyclomine 10 mg Oral cap 2 caps daily [Active]; omeprazole 40 mg Oral cpDR 1 cap once aj1 daily [Active]; Cipro 500 mg Oral tab 1 tab every 12 hours for UTI [Active]; buspirone 5 mg Oral tab 1 tab 2 times per day [Active]; clonazepam 0.5 mg Oral tab 1 tab at bedtime [Active]; trazodone 50 mg oral tab every 8 hours as needed [Active]; losartan 100 mg Oral tab 1 tab once daily [Active]; - PMHx: 13:43 cervical radiculopathy; Depression; Diverticulitis; DVT; RLE; Hernia; Hypertension; aj1 Osteopenia; Diabetes - NIDDM; - Immunization history:: Adult Immunizations up to date. - Social history:: Smoking status: Patient uses tobacco products, smokes two packs cigarettes per day. Patient/guardian denies using alcohol, street drugs. - Family history:: not pertinent. ROS: 15:01 Constitutional: Negative for fever, chills, and weight loss, Eyes: Negative for injury, olive pain, redness, and discharge, ENT: Negative for injury, pain, and discharge, Neck: Negative for injury, pain, and swelling, Cardiovascular: Negative for chest pain, palpitations, and edema, Respiratory: Negative for shortness of breath, cough, wheezing, and pleuritic chest pain, Abdomen/GI: Negative for abdominal pain, nausea, vomiting, diarrhea, and constipation, Back: Negative for injury and pain, : Negative for injury, bleeding, discharge, and swelling, MS/Extremity: Negative for injury and deformity, Skin: Negative for injury, rash, and discoloration, Neuro: Negative for headache, weakness, numbness, tingling, and seizure, Allergy/Immunology: Negative for hives, rash, and allergies, Endocrine: Negative for neck swelling, polydipsia, polyuria, polyphagia, and marked weight changes, Hematologic/Lymphatic: Negative for swollen nodes, abnormal bleeding, and unusual bruising. 15:01 Psych: Positive for depression, suicidal ideation, grief, mom nia . Exam: 15:01 Constitutional: This is a well developed, well nourished patient who is awake, alert, olive and in no acute distress. Head/Face: Normocephalic, atraumatic. Eyes: Pupils equal round and reactive to light, extra-ocular motions intact. Lids and lashes normal. Conjunctiva and sclera are non-icteric and not injected. Cornea within normal limits. Periorbital areas with no swelling, redness, or edema. ENT: Nares patent. No nasal discharge, no septal abnormalities noted. Tympanic membranes are normal and external auditory canals are clear. Oropharynx with no redness, swelling, or masses, exudates, or evidence of obstruction, uvula midline. Mucous membranes moist. Neck: Trachea midline, no thyromegaly or masses palpated, and no cervical lymphadenopathy. Supple, full range of motion without nuchal rigidity, or vertebral point tenderness. No Meningismus. Chest/axilla: Normal chest wall appearance and motion. Nontender with no deformity. No lesions are appreciated. Cardiovascular: Regular rate and rhythm with a normal S1 and S2. No gallops, murmurs, or rubs. Normal PMI, no JVD. No pulse deficits. Respiratory: Lungs have equal breath sounds bilaterally, clear to auscultation and percussion. No rales, rhonchi or wheezes noted. No increased work of breathing, no retractions or nasal flaring. Abdomen/GI: Soft, non-tender, with normal bowel sounds. No distension or tympany. No guarding or rebound. No evidence of tenderness throughout. Back: No spinal tenderness. No costovertebral tenderness. Full range of motion. Female : Normal external genitalia. Skin: Warm, dry with normal turgor. Normal color with no rashes, no lesions, and no evidence of cellulitis. MS/ Extremity: Pulses equal, no cyanosis. Neurovascular intact. Full, normal range of motion. Neuro: Awake and alert, GCS 15, oriented to person, place, time, and situation. Cranial nerves II-XII grossly intact. Motor strength 5/5 in all extremities. Sensory grossly intact. Cerebellar exam normal. Normal gait. Psych: Awake, alert, with orientation to person, place and time. Behavior, mood, and affect are within normal limits. Vital Signs: 13:43 BP 140 / 81; Pulse 90; Resp 18; Temp 98.8; Pulse Ox 99% on R/A; Weight 74.84 kg; Height aj1 5 ft. 5 in. (165.10 cm); Pain 0/10; 16:09 BP 132 / ???; Pulse 78; Resp 18; Pulse Ox 99% ; aj1 13:43 Body Mass Index 27.46 (74.84 kg, 165.10 cm) aj1 MDM: 13:40 Patient medically screened. [facility] 15:04 Data reviewed: vital signs, nurses notes, lab test result(s), EKG. [facility] 01/06 13:41 Order name: Acetaminophen [facility] 01/06 13:41 Order name: Basic Metabolic Panel [facility] 01/06 13:41 Order name: CBC with Diff [facility] 01/06 13:41 Order name: ETOH Level [facility] 01/06 13:41 Order name: Hepatic Function [facility] 01/06 13:41 Order name: PT-INR [facility] 01/06 13:41 Order name: Ptt, Activated [facility] 01/06 13:41 Order name: Salicylate; Complete Time: 15:45 [facility] 01/06 13:41 Order name: TSH; Complete Time: 15:45 [facility] 01/06 13:41 Order name: Acetaminophen Level; Complete Time: 15:45 [facility] 01/06 13:41 Order name: Basic Metabolic Panel; Complete Time: 15:45 [facility] 01/06 13:41 Order name: CBC with Automated Diff; Complete Time: 15:01 [facility] 01/06 13:41 Order name: EKG; Complete Time: 13:42 [facility] 01/06 13:41 Order name: EKG - Nurse/Tech; Complete Time: 14:17 [facility] 01/06 13:41 Order name: IV Saline Lock; Complete Time: 14:37 [facility] 01/06 13:41 Order name: Labs collected and sent; Complete Time: 14:37 [facility] 01/06 13:41 Order name: Alcohol Serum/Plasma; Complete Time: 15:45 [facility] 01/06 13:42 Order name: Liver (Hepatic) Function; Complete Time: 15:45 [facility] 01/06 13:42 Order name: Protime (+INR); Complete Time: 15:45 [facility] 01/06 13:42 Order name: PTT, Activated Partial Thromb; Complete Time: 15:45 EDMS Administered Medications: 14:37 Drug: NS 0.9% 1000 ml Route: IV; Rate: 1 bolus; Site: left antecubital; aj1 Disposition: 01/06/18 15:45 Discharged to Home. Impression: Suicidal ideations. - Condition is Stable. - Discharge Instructions: Depression, Adult, Helping Someone Who is Suicidal, No-harm Safety Contract, Depression, Adult, [id number]. - Medication Reconciliation Form, Thank You Letter, Antibiotic Education, Prescription Opioid Use form. - Follow up: Private Physician; When: 2 - 3 days; Reason: Recheck today's complaints, Continuance of care, Re-evaluation by your physician. - Problem is new. - Symptoms have improved. Signatures: Dispatcher [employer] Marychuy Singh RN RN aj1 Lobito Benitez MD MD cha
[2018-01-06 17:00] VITALS: BP 140/81; TEMP 98.8; O2SAT 99
== END 2018-01-06 16:19 | disposition home or self-care (01) ==
LOC: ER 13:25
DX: R45.851 Suicidal ideations (principal); I10 Essential (primary) hypertension; F32.9 Major depressive disorder, single episode, unspecified; E11.9 Type 2 diabetes mellitus without complications
CPT/HCPCS: 36415; 80048; 80076; 80320; 80329 ×2; 84443; 85025; 85610; 85730; 93005; 99285; J7030

== ENCOUNTER 2018-01-20 19:56 | Emergency (ER) | payer MEDICARE ==
[2018-01-20 20:50] LABS: Urine Blood 1+ (NEG); Urine Glucose NEGATIVE (NEG); Urine Protein NEGATIVE (NEG); Urine Specific Gravity 1.015 (1.005-1.030)
--- NOTE | 2018-01-20 21:45 | ER ---
Nurse's Notes [facility] Name: Helena Tracy Age: 57 yrs Sex: Female : 1960 Arrival Date: 01/20/2018 Time: 20:04 Bed 15 Private MD: Diagnosis: Reaction to severe stress, unspecified;Anorexia Presentation: 01/20 20:33 Presenting complaint: Patient states: "I have been feeling lightheaded, dizzy for about bs1 a week now since I started on antibiotics for my UTI, I vomited once today.". Transition of care: patient was not received from another setting of care. Onset of symptoms was January 20, 2018. Initial Sepsis Screen: Does the patient meet any 2 criteria? No. Patient's initial sepsis screen is negative. Does the patient have a suspected source of infection? No. Patient's initial sepsis screen is negative. Care prior to arrival: None. 20:33 Method Of Arrival: Ambulatory bs1 20:33 Acuity: MARYANN 3 bs1 Historical: - Allergies: 20:38 Latex, Natural Rubber; bs1 20:38 Medrol; bs1 20:38 PENICILLINS; bs1 - Home Meds: 20:38 buspirone 10 mg oral tab [Active]; dicyclomine 10 mg Oral cap 2 caps daily [Active]; bs1 trazodone 50 mg Oral tab every 8 hours as needed [Active]; omeprazole 40 mg Oral cpDR 1 cap once daily [Active]; losartan 100 mg Oral tab 1 tab once daily [Active]; clonazepam 0.5 mg Oral tab 1 tab at bedtime [Active]; Bactrim DS 800-160 mg Oral tab 1 tab every 12 hours [Active]; - PMHx: 20:38 cervical radiculopathy; Depression; Diabetes - NIDDM; Diverticulitis; DVT; RLE; Hernia; bs1 Hypertension; Osteopenia; - PSHx: 20:38 Right total knee sx; x2 foot surgerys right foot; bs1 - Immunization history:: Adult Immunizations up to date. - Social history:: Smoking status: Patient uses tobacco products, smokes one pack cigarettes per day. Screenin:39 Abuse screen: Denies threats or abuse. Denies injuries from another. Nutritional bs1 screening: No deficits noted. Tuberculosis screening: No symptoms or risk factors identified. Fall Risk None identified. Assessment: 21:12 General: Appears uncomfortable, Behavior is cooperative, anxious. Pain: Complains of bs1 pain in right/left upper abdominal pain. Neuro: Level of Consciousness is awake, alert, obeys commands, Oriented to person, place, time, situation, Appropriate for age Group Account Director are equal bilaterally Moves all extremities. Neuro: Reports blurred vision dizziness, headache. Neuro:. Cardiovascular: Reports fatigue, lightheadedness, nausea, vomiting, Denies chest pain, palpitations, shortness of breath, Heart tones S1 S2 present Capillary refill < 3 seconds Patient's skin is warm and dry. Respiratory: Airway is patent Trachea midline Respiratory effort is even, unlabored, Respiratory pattern is regular, symmetrical, Breath sounds are clear bilaterally. GI: Abdomen is round non-distended, Bowel sounds present X 4 quads. Abdomen is tender to palpation in right upper quadrant and left upper quadrant Reports upper abdominal pain, nausea, vomiting. : Denies burning with urination. EENT: No deficits noted. No signs and/or symptoms were reported regarding the EENT system. Derm: Skin is intact, Skin is pink, warm \\T\\ dry. Musculoskeletal: Circulation, motion, and sensation intact. Capillary refill < 3 seconds, Range of motion: intact in all extremities. 21:19 Reassessment: Orthostatics completed. bs1 21:58 Reassessment: Patient appears in no apparent distress at this time. Patient and/or bs1 family updated on plan of care and expected duration. Pain level reassessed. Patient is alert, oriented x 3, equal unlabored respirations, skin warm/dry/pink. Patient agrees with POC and follow up. Prescription for flagyl given. Vital Signs: 20:35 BP 101 / 81 LA Sitting (auto/lg); Pulse 72 LA; Resp 16 S; Temp 98.3(O); Pulse Ox 96% on bs1 R/A; Weight 73.03 kg; Height 5 ft. 4 in. (162.56 cm); Pain 7/10; 21:17 BP 124 / 90 LA Supine (auto/lg); Pulse 63 LA; Pulse Ox 99% on R/A; bs1 21:18 BP 110 / 75 Sitting; Pulse 70 LA; Pulse Ox 98% on R/A; bs1 21:19 BP 112 / 77 Standing; Pulse 74 LA; Pulse Ox 97% on R/A; bs1 20:35 Body Mass Index 27.64 (73.03 kg, 162.56 cm) bs1 ED Course: 20:04 Patient arrived in ED. al2 20:15 Bernadine Heaton FNP-C [facility]. snw 20:15 Nas Gray MD is Attending Physician. snw 20:15 Sharon Guadalupe, VIKASH is Primary Nurse. bs1 20:34 Triage completed. bs1 20:39 Patient has correct armband on for positive identification. Call light in reach. Side bs1 rails up X 1. Pulse ox on. NIBP on. 21:10 Arm band placed on placed. bs1 21:59 No provider procedures requiring assistance completed. Patient did not have IV access bs1 during this emergency room visit. Administered Medications: No medications were administered Outcome: 21:45 Discharge ordered by . snw 21:59 Discharged to home ambulatory. bs1 21:59 Condition: stable 21:59 Discharge instructions given to patient, Instructed on discharge instructions, follow up and referral plans. medication usage, Demonstrated understanding of instructions, follow-up care, medications, Prescriptions given X 1. 22:00 Patient left the ED. bs1 Signatures: Bernadine Heaton FNP-C HIDE SPREADER-Csnw Sharon Guadalupe, RN RN bs1 Billie Dupree al2
--- NOTE | 2018-01-20 21:45 | EDPHYS ---
Physician Documentation [facility] Name: Helena Tracy Age: 57 yrs Sex: Female : 1960 Arrival Date: 01/20/2018 Time: 20:04 Bed 15 Private MD: ED Physician Nas Gray HPI: 01/20 21:52 This 57 yrs old Female presents to ER via Ambulatory with complaints of snw Nausea/Vomiting. 21:52 The patient presents to the emergency department with nausea, anorexia, . Onset: The snw symptoms/episode began/occurred suddenly, 2 week(s) ago, and became worse and became persistent. Possible causes: emotional - of mother. The symptoms are aggravated by food . Severity of symptoms: At their worst the symptoms were moderate in the emergency department the symptoms are unchanged. It is unknown whether or not the patient has had similar symptoms in the past. The patient has been recently seen by a physician: The patient has been recently seen at the [facility] Emergency Department, for similar complaints x 2 in last 2-3 weeks. Historical: - Allergies: 20:38 Latex, Natural Rubber; bs1 20:38 Medrol; bs1 20:38 PENICILLINS; bs1 - Home Meds: 20:38 buspirone 10 mg oral tab [Active]; dicyclomine 10 mg Oral cap 2 caps daily [Active]; bs1 trazodone 50 mg Oral tab every 8 hours as needed [Active]; omeprazole 40 mg Oral cpDR 1 cap once daily [Active]; losartan 100 mg Oral tab 1 tab once daily [Active]; clonazepam 0.5 mg Oral tab 1 tab at bedtime [Active]; Bactrim DS 800-160 mg Oral tab 1 tab every 12 hours [Active]; - PMHx: 20:38 cervical radiculopathy; Depression; Diabetes - NIDDM; Diverticulitis; DVT; RLE; Hernia; bs1 Hypertension; Osteopenia; - PSHx: 20:38 Right total knee sx; x2 foot surgerys right foot; bs1 - Immunization history:: Adult Immunizations up to date. - Social history:: Smoking status: Patient uses tobacco products, smokes one pack cigarettes per day. ROS: 21:51 Constitutional: Negative for fever, chills, and weight loss, Eyes: Negative for injury, snw pain, redness, and discharge, ENT: Negative for injury, pain, and discharge, Neck: Negative for injury, pain, and swelling, Cardiovascular: Negative for chest pain, palpitations, and edema, Respiratory: Negative for shortness of breath, cough, wheezing, and pleuritic chest pain, Back: Negative for injury and pain, : Negative for injury, bleeding, discharge, and swelling, MS/Extremity: Negative for injury and deformity, Skin: Negative for injury, rash, and discoloration, Neuro: Negative for headache, weakness, numbness, tingling, and seizure, Psych: Negative for depression, anxiety, suicide ideation, homicidal ideation, and hallucinations. 21:51 Constitutional: Negative for fever, chills, + emotional distress and weight loss. 21:51 Abdomen/GI: Positive for nausea, lack of an appetite. Exam: 21:49 Head/Face: Normocephalic, atraumatic. Eyes: Pupils equal round and reactive to light, snw extra-ocular motions intact. Lids and lashes normal. Conjunctiva and sclera are non-icteric and not injected. Cornea within normal limits. Periorbital areas with no swelling, redness, or edema. ENT: Nares patent. No nasal discharge, no septal abnormalities noted. Tympanic membranes are normal and external auditory canals are clear. Oropharynx with no redness, swelling, or masses, exudates, or evidence of obstruction, uvula midline. Mucous membranes moist. Neck: Trachea midline, no thyromegaly or masses palpated, and no cervical lymphadenopathy. Supple, full range of motion without nuchal rigidity, or vertebral point tenderness. No Meningismus. Chest/axilla: Normal chest wall appearance and motion. Nontender with no deformity. No lesions are appreciated. Cardiovascular: Regular rate and rhythm with a normal S1 and S2. No gallops, murmurs, or rubs. Normal PMI, no JVD. No pulse deficits. Respiratory: Lungs have equal breath sounds bilaterally, clear to auscultation and percussion. No rales, rhonchi or wheezes noted. No increased work of breathing, no retractions or nasal flaring. Abdomen/GI: Soft, mildly tender, with normal bowel sounds. No distension or tympany. No guarding or rebound Back: No spinal tenderness. No costovertebral tenderness. Full range of motion. Skin: Warm, dry with normal turgor. Bronze color with no rashes, no lesions, and no evidence of cellulitis. MS/ Extremity: Pulses equal, no cyanosis. Neurovascular intact. Full, normal range of motion. Neuro: Awake and alert, GCS 15, oriented to person, place, time, and situation. Cranial nerves II-XII grossly intact. Motor strength 5/5 in all extremities. Sensory grossly intact. Cerebellar exam normal. Normal gait. 21:49 Constitutional: The patient appears alert, awake, uncomfortable, sad (Mother 2 weeks ago) Vital Signs: 20:35 BP 101 / 81 LA Sitting (auto/lg); Pulse 72 LA; Resp 16 S; Temp 98.3(O); Pulse Ox 96% on bs1 R/A; Weight 73.03 kg; Height 5 ft. 4 in. (162.56 cm); Pain 7/10; 21:17 BP 124 / 90 LA Supine (auto/lg); Pulse 63 LA; Pulse Ox 99% on R/A; bs1 21:18 BP 110 / 75 Sitting; Pulse 70 LA; Pulse Ox 98% on R/A; bs1 21:19 BP 112 / 77 Standing; Pulse 74 LA; Pulse Ox 97% on R/A; bs1 20:35 Body Mass Index 27.64 (73.03 kg, 162.56 cm) bs1 MDM: 20:34 Patient medically screened. snw 21:52 Data reviewed: vital signs, nurses notes. Data interpreted: Pulse oximetry: on room air snw is 97 %. Interpretation: normal. Counseling: I had a detailed discussion with the patient and/or guardian regarding: the historical points, exam findings, and any diagnostic results supporting the discharge/admit diagnosis, lab results, the need for outpatient follow up, to return to the emergency department if symptoms worsen or persist or if there are any questions or concerns that arise at home. Special discussion: Based on the history and exam findings, there is no indication for further emergent testing or inpatient evaluation. I discussed with the patient/guardian the need to see the primary care provider for further evaluation of the symptoms. I discussed with the patient/guardian the need to see the psychiatrist for further evaluation of the symptoms. 01/20 20:46 Order name: Urine Dipstick--Ancillary (enter results); Complete Time: 20:51 mt 01/20 20:50 Order name: Orthostatics; Complete Time: 21:26 snw Administered Medications: No medications were administered Disposition: 01/20/18 21:45 Discharged to Home. Impression: Reaction to severe stress, unspecified, Anorexia. - Condition is Stable. - Discharge Instructions: Adjustment Disorder, Urinary Tract Infection, Malnutrition. - Prescriptions for Flagyl 500 mg Oral Tablet - take 1 tablet by ORAL route every 8 hours for 10 days; 30 tablet. - Medication Reconciliation Form, Thank You Letter, Antibiotic Education, Prescription Opioid Use form. - Follow up: Private Physician; When: 2 - 3 days; Reason: Recheck today's complaints, Continuance of care, Re-evaluation by your physician. Follow up: Emergency Department; When: As needed; Reason: Worsening of condition. - Notes: please continue Bactrim Addendum: 01/22/2018 07:03 Co-signature as Attending Physician, Nas Gray MD. r n Signatures: Dispatcher [employer] EDMS Bernadine Heaton, STEWART-C DIGITAL WATCH ASSEMBLER-Csnw Nas Gray MD MD rn Salazar, Brittany RN RN bs1 Corrections: (The following items were deleted from the chart) 01/20 22:00 21:45 01/20/2018 21:45 Discharged to Home. Impression: Reaction to severe stress, bs1 unspecified; Anorexia. Condition is Stable. Forms are Medication Reconciliation Form, Thank You Letter, Antibiotic Education, Prescription Opioid Use. Follow up: Private Physician; When: 2 - 3 days; Reason: Recheck today's complaints, Continuance of care, Re-evaluation by your physician. Follow up: Emergency Department; When: As needed; Reason: Worsening of condition. snw
[2018-01-20 22:07] VITALS: TEMP 98.3
[2018-01-20 22:10] VITALS: BP 112/77; O2SAT 97
== END 2018-01-20 22:00 | disposition home or self-care (01) ==
LOC: ER 19:56
DX: F43.9 Reaction to severe stress, unspecified (principal); R11.2 Nausea with vomiting, unspecified; E11.9 Type 2 diabetes mellitus without complications; I10 Essential (primary) hypertension; F17.210 Nicotine dependence, cigarettes, uncomplicated; Z88.0 Allergy status to penicillin; Z88.8 Allergy status to other drugs, medicaments and biological substances; Z91.040 Latex allergy status
CPT/HCPCS: 81003; 99283

== ENCOUNTER 2018-02-02 18:26 | Emergency (ER) | payer MEDICARE ==
[2018-02-02 19:54] LABS: Absolute Lymphocytes (CBC) 2.2 K/uL (0.7-4.9); Absolute Monocytes 0.7 K/uL (0.1-1.3); Absolute Neutrophil 7.1 K/uL (1.8-8.0); Basophils % 1.2 % (0-1.3); Eosinophils % 1.3 % (0-4.4); Hematocrit 40.4 % (36.0-45.0); Lymphocytes % 21.3 % (15.3-44.8); MCH 30.8 pg (27.0-35.0); MCV 91.6 fL (80-100); MPV 7.9 fL (7.6-11.3); RBC Red Blood Cell Count 4.41 M/uL (3.86-4.86)
[2018-02-02 20:02] LABS: Potassium 3.7 mEq/L (3.6-5.0)
[2018-02-02 20:08] LABS: Albumin 3.9 g/dL (3.2-5.5); Bilirubin Direct 0.1 mg/dL (0-0.2); Bilirubin Total 0.4 mg/dL (0.3-1.2)
[2018-02-02] MEDS ORDERED: NA CHLORIDE 0.9% 1,000 ML ONE (20:08)
[2018-02-02 21:05] LABS: Urine Blood 1+ (NEG); Urine Glucose NEGATIVE (NEG); Urine Protein NEGATIVE (NEG)
[2018-02-02 21:07] LABS: Urine Bacteria <20 /HPF (<20)
[2018-02-02 21:08] LABS: Urine Culture Reflex Order REFLEXED; Urine Trichomonas PRESENT (NONE SEEN)
[2018-02-02] MEDS ORDERED: AZITHROMYCIN 250 MG TAB ONE (22:18)
[2018-02-02] MEDS ORDERED: CEFTRIAXONE/SWI 1gm 1 GM/10 ML SYR ONE (22:18)
[2018-02-02] MEDS ORDERED: metroNIDAZOLE 500 MG TABLET ONE (22:18)
--- NOTE | 2018-02-02 22:27 | ER ---
Nurse's Notes [facility] Name: Helena Tracy Age: 57 yrs Sex: Female : 1960 Arrival Date: 02/02/2018 Time: 18:30 Bed 24 Private MD: Watson Rios Diagnosis: Trichomoniasis Presentation: 02/02 18:42 Presenting complaint: Patient states: " For the past few days I've been feeling dizzy, ph last night I started having stomach pain and today I started having cramping in both of my legs. I had some blood work done and they said I have thyroid issues and my kidneys are functioning at 46%." Pt reports pain in upper abdomen that radiates to mid back, frequent urination, nausea,dizziness, and rapid weight loss, also reports intermittent chest pain and tingling in hands. Transition of care: patient was not received from another setting of care. Onset of symptoms was February 02, 2018. Risk Assessment: Do you want to hurt yourself or someone else? Patient reports no desire to harm self or others. Initial Sepsis Screen: Does the patient meet any 2 criteria? No. Patient's initial sepsis screen is negative. Does the patient have a suspected source of infection? No. Patient's initial sepsis screen is negative. Care prior to arrival: None. 18:42 Method Of Arrival: Ambulatory ph 18:42 Acuity: MARYANN 3 ph Triage Assessment: 19:15 General: Appears in no apparent distress. uncomfortable, well groomed, well developed, kr2 well nourished, Behavior is calm, cooperative. Historical: - Allergies: 18:47 Latex, Natural Rubber; ph 18:47 Medrol; ph 18:47 PENICILLINS; ph - PMHx: 18:47 cervical radiculopathy; Depression; Diverticulitis; DVT; RLE; Hernia; Hypertension; ph Osteopenia; - PSHx: 18:47 Right total knee sx; x2 foot surgerys right foot; ph - Immunization history:: Adult Immunizations unknown. - Social history:: Smoking status: Patient uses tobacco products, smokes one-half pack cigarettes per day. - Ebola Screening: : No symptoms or risks identified at this time. Screenin:15 Abuse screen: Denies threats or abuse. Denies injuries from another. Nutritional kr2 screening: No deficits noted. Tuberculosis screening: No symptoms or risk factors identified. Fall Risk None identified. Assessment: 19:00 General: Appears in no apparent distress. uncomfortable, well groomed, well developed, kr2 well nourished, Behavior is calm, cooperative. Pain: Complains of pain in abdomen and pelvis. Pain: Pain does not radiate. Pain currently is 5 out of 10 on a pain scale. Quality of pain is described as aching, tender, Is continuous. Neuro: Level of Consciousness is awake, alert, obeys commands, Oriented to person, place, time, situation, Appropriate for age. Cardiovascular: Capillary refill < 3 seconds in bilateral fingers Patient's skin is warm and dry. Respiratory: Airway is patent Respiratory effort is even, unlabored, Respiratory pattern is regular, symmetrical. GI: Bowel sounds present X 4 quads. Abd is soft X 4 quads Abdomen is tender to palpation in suprapubic area. : No signs and/or symptoms were reported regarding the genitourinary system. EENT: Oral mucosa is moist. Derm: Skin is intact, is healthy with good turgor, Skin is pink, warm \\T\\ dry. Musculoskeletal: Circulation, motion, and sensation intact. 20:00 Reassessment: Patient appears in no apparent distress at this time. Patient and/or kr2 family updated on plan of care and expected duration. Pain level reassessed. Patient is alert, oriented x 3, equal unlabored respirations, skin warm/dry/pink. 21:00 Reassessment: No changes from previously documented assessment. kr2 22:35 Reassessment: Patient appears in no apparent distress at this time. Patient and/or kr2 family updated on plan of care and expected duration. Pain level reassessed. Patient is alert, oriented x 3, equal unlabored respirations, skin warm/dry/pink. Vital Signs: 18:47 BP 132 / 90; Pulse 77; Resp 16; Temp 97.6; Pulse Ox 100% on R/A; Weight 70.31 kg; ph Height 5 ft. 4 in. (162.56 cm); Pain 6/10; 20:33 BP 100 / 69; Pulse 67; Resp 17; Pulse Ox 97% on R/A; kr2 22:34 BP 130 / 99; Pulse 68; Resp 16; Pulse Ox 99% on R/A; kr2 18:47 Body Mass Index 26.61 (70.31 kg, 162.56 cm) ph ED Course: 18:30 Patient arrived in ED. es 18:30 Watson Rios MD is Private Physician. es 18:46 Triage completed. ph 18:48 Arm band placed on. ph 19:03 Prashanth Ventura NP is PHCP. pm1 19:04 Lobito Benitez MD is Attending Physician. pm1 19:15 Patient has correct armband on for positive identification. Bed in low position. Call kr2 light in reach. Side rails up X 1. Adult w/ patient. hull outfit supervisor on. Pulse ox on. NIBP on. Door closed. Warm blanket given. Head of bed elevated. 19:33 Shannan Britton, VIKASH is Primary Nurse. kr2 19:40 Inserted saline lock: 22 gauge in left antecubital area, using aseptic technique. Blood kr2 collected. 22:35 No provider procedures requiring assistance completed. IV discontinued, intact, kr2 bleeding controlled, No redness/swelling at site. Pressure dressing applied. Administered Medications: 19:45 Drug: NS 0.9% 1000 ml Route: IV; Rate: 1000 ml; Site: left antecubital; kr2 21:00 Follow up: Response: No adverse reaction; IV Status: Completed infusion kr2 22:25 Drug: Flagyl 2 grams Route: PO; kr2 22:32 Follow up: Response: No adverse reaction kr2 22:25 Drug: AZITHromycin 1 grams Route: PO; kr2 22:32 Follow up: Response: No adverse reaction kr2 22:25 Drug: Rocephin 1 grams Route: IV; Rate: calculated rate; Site: left antecubital; kr2 22:31 Follow up: Response: No adverse reaction; IV Status: Completed infusion kr2 Outcome: 22:26 Discharge ordered by . pm1 22:35 Discharged to home ambulatory, with friend. kr2 22:35 Condition: good 22:35 Discharge instructions given to patient, Instructed on discharge instructions, follow up and referral plans. Demonstrated understanding of instructions, follow-up care. 22:36 Patient left the ED. kr2 Signatures: Leslie Sykes Patricia, RN RN Prashanth Ventura NP SPORTS PHYSIOTHERAPIST pm1 Shannan Britton RN RN kr2 Corrections: (The following items were deleted from the chart) 20:21 20:19 BP 174 / 99; Pulse 78bpm; Resp 18bpm; Pulse Ox 100% RA; kr2 kr2 20:21 19:15 BP 177 / 100; Pulse 80bpm; Resp 18bpm; Pulse Ox 99% RA; kr2 kr2 20:21 19:15 Reassessment: Patient appears in no apparent distress at this time. Patient kr2 and/or family updated on plan of care and expected duration. Pain level reassessed. Report received from VIKASH Larson. Patient complains of Headache at this time, provider notified, medications ordered kr2 20: 19:15 Pain: Complains of pain in head Pain currently is 7 out of 10 on a pain scale. kr2 Quality of pain is described as aching, Pain began gradually, Is continuous, Alleviated by nothing. kr2 20:21 19:15 GI: Bowel sounds present X 4 quads. Abd is soft and non tender X 4 quads. kr2 kr2 20:21 20:20 Condition: good kr2 kr2 : 20:20 Discharged to home ambulatory, with family, kr2 kr2 : 20:20 Discharge instructions given to patient, family, Instructed on discharge kr2 instructions, follow up and referral plans. Demonstrated understanding of instructions, follow-up care, kr2 : 20:19 No provider procedures requiring assistance completed. kr2 kr2 : 20:19 IV discontinued, intact, bleeding controlled, No redness/swelling at site. kr2 Pressure dressing applied, kr2
--- NOTE | 2018-02-02 22:27 | EDPHYS ---
Physician Documentation [facility] Name: Helena Tracy Age: 57 yrs Sex: Female : 1960 Arrival Date: 02/02/2018 Time: 18:30 Bed 24 Private MD: Watson Rios ED Physician Lobito Benitez HPI: 02/02 22:00 This 57 yrs old Female presents to ER via Ambulatory with complaints of pm1 Weakness, Abdominal Pain. 22:00 The patient presents with generalized weakness. Onset: The symptoms/episode pm1 began/occurred 4 week(s) ago. Context: occurred at home, just prior to the episode the patient experienced no apparent symptoms. Modifying factors: The symptoms are alleviated by nothing, the symptoms are aggravated by nothing. Associated signs and symptoms: Pertinent positives: Vaginal discharge, Pertinent negatives: chest pain, shortness of breath. Severity of symptoms: in the emergency department the symptoms are unchanged. The patient has been recently seen by a physician: the patient's primary care provider, for the same complaints and referred to compressed gas tester due to hyperthyroid. Patient with sexual intercourse for the first time in years 1 month ago. Historical: - Allergies: 18:47 Latex, Natural Rubber; ph 18:47 Medrol; ph 18:47 PENICILLINS; ph - PMHx: 18:47 cervical radiculopathy; Depression; Diverticulitis; DVT; RLE; Hernia; Hypertension; ph Osteopenia; - PSHx: 18:47 Right total knee sx; x2 foot surgerys right foot; ph - Immunization history:: Adult Immunizations unknown. - Social history:: Smoking status: Patient uses tobacco products, smokes one-half pack cigarettes per day. - Ebola Screening: : No symptoms or risks identified at this time. ROS: 22:00 Constitutional: Negative for fever, chills, and weight loss, Eyes: Negative for injury, pm1 pain, redness, and discharge, ENT: Negative for injury, pain, and discharge, Neck: Negative for injury, pain, and swelling, Cardiovascular: Negative for chest pain, palpitations, and edema, Respiratory: Negative for shortness of breath, cough, wheezing, and pleuritic chest pain. 22:00 Back: Negative for injury and pain. 22:00 MS/Extremity: Negative for injury and deformity, Skin: Negative for injury, rash, and discoloration, Neuro: Negative for headache, weakness, numbness, tingling, and seizure. 22:00 Abdomen/GI: Positive for abdominal pain, of the suprapubic area, Negative for nausea, vomiting, and diarrhea. 22:00 : Positive for burning with urination, vaginal discharge, Negative for Exam: 22:00 Constitutional: This is a well developed, well nourished patient who is awake, alert, pm1 and in no acute distress. Head/Face: Normocephalic, atraumatic. Eyes: Pupils equal round and reactive to light, extra-ocular motions intact. Lids and lashes normal. Conjunctiva and sclera are non-icteric and not injected. Cornea within normal limits. Periorbital areas with no swelling, redness, or edema. ENT: Nares patent. No nasal discharge, no septal abnormalities noted. Tympanic membranes are normal and external auditory canals are clear. Oropharynx with no redness, swelling, or masses, exudates, or evidence of obstruction, uvula midline. Mucous membranes moist. Neck: Trachea midline, no thyromegaly or masses palpated, and no cervical lymphadenopathy. Supple, full range of motion without nuchal rigidity, or vertebral point tenderness. No Meningismus. Chest/axilla: Normal chest wall appearance and motion. Nontender with no deformity. No lesions are appreciated. Cardiovascular: Regular rate and rhythm with a normal S1 and S2. No gallops, murmurs, or rubs. Normal PMI, no JVD. No pulse deficits. Respiratory: Lungs have equal breath sounds bilaterally, clear to auscultation and percussion. No rales, rhonchi or wheezes noted. No increased work of breathing, no retractions or nasal flaring. Abdomen/GI: Soft, non-tender, with normal bowel sounds. No distension or tympany. No guarding or rebound. No evidence of tenderness throughout. Back: No spinal tenderness. No costovertebral tenderness. Full range of motion. Skin: Warm, dry with normal turgor. Normal color with no rashes, no lesions, and no evidence of cellulitis. MS/ Extremity: Pulses equal, no cyanosis. Neurovascular intact. Full, normal range of motion. Neuro: Awake and alert, GCS 15, oriented to person, place, time, and situation. Cranial nerves II-XII grossly intact. Motor strength 5/5 in all extremities. Sensory grossly intact. Cerebellar exam normal. Normal gait. Vital Signs: 18:47 BP 132 / 90; Pulse 77; Resp 16; Temp 97.6; Pulse Ox 100% on R/A; Weight 70.31 kg; ph Height 5 ft. 4 in. (162.56 cm); Pain 6/10; 20:33 BP 100 / 69; Pulse 67; Resp 17; Pulse Ox 97% on R/A; kr2 22:34 BP 130 / 99; Pulse 68; Resp 16; Pulse Ox 99% on R/A; kr2 18:47 Body Mass Index 26.61 (70.31 kg, 162.56 cm) ph MDM: 19:15 Patient medically screened. olive 21:54 ED course: patient refused pelvic exam. Just wants antibiotic treatment. pm1 22:23 Data reviewed: vital signs. Data interpreted: Pulse oximetry: on room air is 97 %. pm1 Interpretation: normal. Counseling: I had a detailed discussion with the patient and/or guardian regarding: the historical points, exam findings, and any diagnostic results supporting the discharge/admit diagnosis, lab results, the need for outpatient follow up, to return to the emergency department if symptoms worsen or persist or if there are any questions or concerns that arise at home. 02/02 19:19 Order name: Basic Metabolic Panel 1 02/02 19:19 Order name: CBC with Diff; Complete Time: 21:42 pm1 02/02 19:19 Order name: Creatinine for Radiology; Complete Time: 21:42 pm1 02/02 19:19 Order name: Hepatic Function pm1 02/02 19:19 Order name: Lipase pm1 02/02 19:19 Order name: Urine Microscopic Only; Complete Time: 21:42 pm1 02/02 19:20 Order name: Basic Metabolic Panel; Complete Time: 21:42 EDSD 02/02 19:20 Order name: Liver (Hepatic) Function; Complete Time: 21:42 EDSD 02/02 19:20 Order name: Lipase; Complete Time: 21:42 EDSD 02/02 20:57 Order name: Urine Dipstick--Ancillary (enter results); Complete Time: 21:42 02/02 20:57 Order name: Urine --Ancillary (enter results); Complete Time: 21:42 02/02 21:09 Order name: Urine Culture [facility] 02/02 19:19 Order name: Urine Test (obtain specimen); Complete Time: 20:33 pm1 02/02 19:19 Order name: IV Saline Lock; Complete Time: 19:43 pm1 02/02 19:19 Order name: Labs collected and sent; Complete Time: 19:43 pm1 02/02 19:19 Order name: Urine Dipstick-Ancillary (obtain specimen); Complete Time: 20:33 pm1 Administered Medications: 19:45 Drug: NS 0.9% 1000 ml Route: IV; Rate: 1000 ml; Site: left antecubital; kr2 21:00 Follow up: Response: No adverse reaction; IV Status: Completed infusion kr2 22:25 Drug: Flagyl 2 grams Route: PO; kr2 22:32 Follow up: Response: No adverse reaction kr2 22:25 Drug: AZITHromycin 1 grams Route: PO; kr2 22:32 Follow up: Response: No adverse reaction kr2 22:25 Drug: Rocephin 1 grams Route: IV; Rate: calculated rate; Site: left antecubital; kr2 22:31 Follow up: Response: No adverse reaction; IV Status: Completed infusion kr2 Disposition: 02/03 09:36 Co-signature as Attending Physician, Lobito Benitez MD I agree with the assessment and olive plan of care. Disposition: 02/02/18 22:26 Discharged to Home. Impression: Trichomoniasis. - Condition is Stable. - Discharge Instructions: Trichomoniasis. - Medication Reconciliation Form, Thank You Letter form. - Follow up: Emergency Department; When: As needed; Reason: Worsening of condition. Follow up: Private Physician; When: 2 - 3 days; Reason: Recheck today's complaints, Continuance of care, Re-evaluation by your physician. - Problem is new. - Symptoms have improved. Signatures: Dispatcher [employer] [facility] Lobito Benitez MD MD cha Hall, Patricia, RN RN Prashanth Su, DRILL PRESS SET UP OPERATOR RADIAL DRILL PRESS SET UP OPERATOR RADIAL pm1 Shannan Britton RN RN kr2 Corrections: (The following items were deleted from the chart) 02/02 22:36 22:26 02/02/2018 22:26 Discharged to Home. Impression: Trichomoniasis. Condition is kr2 Stable. Forms are Medication Reconciliation Form, Thank You Letter, Antibiotic Education, Prescription Opioid Use. Follow up: Emergency Department; When: As needed; Reason: Worsening of condition. Follow up: Private Physician; When: 2 - 3 days; Reason: Recheck today's complaints, Continuance of care, Re-evaluation by your physician. Problem is new. Symptoms have improved. pm1
[2018-02-02 22:45] VITALS: TEMP 97.6
[2018-02-02 22:47] VITALS: BP 130/99; O2SAT 99
== END 2018-02-02 22:36 | disposition home or self-care (01) ==
LOC: ER 18:26
DX: A59.9 Trichomoniasis, unspecified (principal); I10 Essential (primary) hypertension; F17.210 Nicotine dependence, cigarettes, uncomplicated; Z88.0 Allergy status to penicillin; Z88.8 Allergy status to other drugs, medicaments and biological substances; Z91.040 Latex allergy status
CPT/HCPCS: 36415; 80048; 80076; 81025; 83690; 85025; 87086; 87088; 96361; 96374; 99284; J0696; J7030; 81003; 81015

== ENCOUNTER 2018-07-29 22:00 | Emergency (ER) | payer MEDICARE ==
[2018-07-29 22:51] LABS: Absolute Lymphocytes (CBC) 2.5 K/uL (0.7-4.9); Absolute Monocytes 0.5 K/uL (0.1-1.3); Absolute Neutrophil 3.9 K/uL (1.8-8.0); Basophils % 0.8 % (0-1.3); Eosinophils % 2.6 % (0-4.4); Hematocrit 34.2 % (36.0-45.0); Lymphocytes % 34.7 % (15.3-44.8); MCV 93.2 fL (80-100); MPV 7.8 fL (7.6-11.3); Monocytes % 7.2 % (3.3-12.3); RBC Red Blood Cell Count 3.67 M/uL (3.86-4.86)
[2018-07-29 23:03] LABS: Protime INR 1.01
[2018-07-29 23:10] LABS: ALT/SGPT 12 U/L (12-78); AST/SGOT 9 U/L (15-37); Albumin 3.6 g/dL (3.4-5.0); Alkaline Phosphatase 81 U/L (45-117); BUN Blood Urea Nitrogen 16 mg/dL (7-18); Bicarbonate 28 mmol/L (21-32); Bilirubin Direct < 0.1 mg/dL (0-0.2); Bilirubin Total 0.4 mg/dL (0.2-1.0); Glucose Level 93 mg/dL (74-106); Lipase 101 U/L (73-393); Potassium 3.7 mmol/L (3.5-5.1); Protein, Total 6.2 g/dL (6.4-8.2); Sodium Level 144 mmol/L (136-145)
--- NOTE | 2018-07-30 02:44 | ER ---
Nurse's Notes [facility] Name: Helena Tracy Age: 57 yrs Sex: Female : 1960 Arrival Date: 07/29/2018 Time: 22:02 Bed 7 Private MD: Diagnosis: Encounter for screening for lower gastrointestinal disorder;Hemorrhoids and perianal venous thrombosis Presentation: 07/29 22:02 Presenting complaint: EMS states: Tone up for rectal bleeding for the past two hours. ao Patient report spotting rectal bleeding. Patient also complains of chest tingling and denies SOB and nausea. Transition of care: patient was not received from another setting of care. Onset of symptoms was July 29, 2018 at 20:00. Risk Assessment: Do you want to hurt yourself or someone else? Patient reports no desire to harm self or others. Initial Sepsis Screen: Does the patient meet any 2 criteria? No. Patient's initial sepsis screen is negative. Does the patient have a suspected source of infection? No. Patient's initial sepsis screen is negative. Care prior to arrival: None. 22:02 Method Of Arrival: EMS: [facility] ao 22:02 Acuity: MARYANN 3 ao Historical: - Allergies: 22:08 Latex, Natural Rubber; ao 22:08 Medrol; ao 22:08 PENICILLINS; ao - Home Meds: 22:08 losartan-hydrochlorothiazide oral oral [Active]; Aspirin Oral [Active]; ao - PMHx: 22:08 cervical radiculopathy; Depression; Diabetes - NIDDM; Diverticulitis; DVT; RLE; ao Hypertension; Hernia; Osteopenia; SVT; - PSHx: 22:08 None; ao - Immunization history:: Adult Immunizations up to date. - Social history:: Smoking status: Patient uses tobacco products, smokes one-half pack cigarettes per day, Patient/guardian denies using alcohol, street drugs. - Ebola Screening: : Patient negative for fever greater than or equal to 101.5 degrees Fahrenheit, and additional compatible Ebola Virus Disease symptoms Patient denies exposure to infectious person Patient denies travel to an Ebola-affected area in the 21 days before illness onset. Screenin:07 Abuse screen: Denies threats or abuse. Nutritional screening: No deficits noted. ea Tuberculosis screening: No symptoms or risk factors identified. Fall Risk None identified. Assessment: 22:03 General: Appears in no apparent distress. Behavior is calm, cooperative, appropriate ea for age. Pain: Denies pain. Neuro: Level of Consciousness is awake, alert, obeys commands, Oriented to person, place, time, situation. Cardiovascular: Patient's skin is warm and dry. Respiratory: Airway is patent Respiratory effort is even, unlabored, Respiratory pattern is regular, symmetrical. Derm: Skin is pink, warm \T\ dry. 22:03 GI: Bowel sounds present X 4 quads. Abd is soft and non tender X 4 quads. Reports pt ea reports rectal bleeding. Musculoskeletal: Circulation, motion, and sensation intact. 23:33 Reassessment: Patient and/or family updated on plan of care and expected duration. Pain ea level reassessed. Patient is alert, oriented x 3, equal unlabored respirations, skin warm/dry/pink. 07/30 00:38 Reassessment: Patient and/or family updated on plan of care and expected duration. Pain ea level reassessed. Patient is alert, oriented x 3, equal unlabored respirations, skin warm/dry/pink. Pt taken to CT. 01:10 Reassessment: Patient and/or family updated on plan of care and expected duration. Pain rr5 level reassessed. awaiting for report Patient states feeling better. Patient states symptoms have improved. 02:14 Reassessment: Patient appears in no apparent distress at this time. Patient and/or rr5 family updated on plan of care and expected duration. Pain level reassessed. no complaints made. 02:59 Reassessment: explained discharge instruction and medication. no complaints made. rr5 vitally stable. Vital Signs: 07/29 22:04 BP 189 / 97; Pulse 72; Resp 18; Temp 98.0; Pulse Ox 95% on R/A; Weight 68.04 kg (R); ao Height 5 ft. 2 in. (157.48 cm); Pain 0/10; 22:06 BP 161 / 95; Pulse 67; Resp 18; Temp 98; Pulse Ox 97% on R/A; ea 23:33 BP 152 / 87; Pulse 64; Resp 18; Pulse Ox 96% ; ea 07/30 00:00 BP 148 / 79; Pulse 62; Resp 17; Pulse Ox 98% on R/A; rr5 01:00 BP 157 / 87; Pulse 61; Resp 17; Pulse Ox 99% on R/A; rr5 02:14 BP 142 / 77; Pulse 65; Resp 16; Pulse Ox 99% on R/A; rr5 02:30 BP 169 / 70; Pulse 66; Resp 18; Temp 97.6; Pulse Ox 98% on R/A; Pain 0/10; ao 07/29 22:04 Body Mass Index 27.44 (68.04 kg, 157.48 cm) ao ED Course: 07/29 22:02 Patient arrived in ED. al2 22:02 Opal Ricketts, RN is Primary Nurse. ea 22:04 Triage completed. ao 22:07 Patient has correct armband on for positive identification. Bed in low position. Call ea light in reach. Side rails up X2. 22:08 Arm band placed on right wrist. Patient placed in an exam room, on a stretcher, on ao environmental monitoring technician, on pulse oximetry, Patient notified of wait time. 22:25 Edgardo Doherty MD is Attending Physician. tw4 22:45 Inserted saline lock: 20 gauge in right antecubital area, using aseptic technique. rr5 Blood collected. 07/30 00:50 Inserted saline lock: 22 gauge in left antecubital area, using aseptic technique. by rr5 radiology department. 01:09 CT Abd/Pelvis - W/Contrast In Process Unspecified. EDMS 02:58 No provider procedures requiring assistance completed. IV discontinued, intact, ao bleeding controlled, No redness/swelling at site. Pressure dressing applied. Administered Medications: No medications were administered Outcome: 02:43 Discharge ordered by . tw4 02:59 Discharged to home ambulatory. rr5 02:59 Condition: stable 02:59 Discharge instructions given to patient, Instructed on discharge instructions, follow up and referral plans. medication usage, Demonstrated understanding of instructions, follow-up care, medications, Prescriptions given X 1. 03:00 Patient left the ED. rr5 Signatures: Dispatcher [employer] EDMS Francis Dietz RN RN ao Antunez, Elena, RN RN Billie Tejeda al2 Edgardo Doherty MD MD tw4 Praful Sanchez, RN RN rr5 Corrections: (The following items were deleted from the chart) 07/29 22:11 22:03 GI: Reports pt reports rectal bleeding ea ea
--- NOTE | 2018-07-30 02:44 | EDPHYS ---
Physician Documentation [facility] Name: Helena Tracy Age: 57 yrs Sex: Female : 1960 Arrival Date: 07/29/2018 Time: 22:02 Bed 7 Private MD: ED Physician Edgardo Doherty HPI: 07/30 06:21 This 57 yrs old Female presents to ER via EMS with complaints of Rectal tw4 Bleeding. 06:21 The patient presents to the emergency department with bleeding from the rectum/anus, tw4 that is mild. Onset: The symptoms/episode began/occurred today. Context: the patient has no known special context relating to the rectal area complaint(s). Modifying factors: The symptoms are alleviated by nothing, The symptoms are aggravated by nothing. The patient has not experienced similar symptoms in the past. Historical: - Allergies: 07/29 22:08 Latex, Natural Rubber; ao 22:08 Medrol; ao 22:08 PENICILLINS; ao - Home Meds: 22:08 losartan-hydrochlorothiazide oral oral [Active]; Aspirin Oral [Active]; ao - PMHx: 22:08 cervical radiculopathy; Depression; Diabetes - NIDDM; Diverticulitis; DVT; RLE; ao Hypertension; Hernia; Osteopenia; SVT; - PSHx: 22:08 None; ao - Immunization history:: Adult Immunizations up to date. - Social history:: Smoking status: Patient uses tobacco products, smokes one-half pack cigarettes per day, Patient/guardian denies using alcohol, street drugs. - Ebola Screening: : Patient negative for fever greater than or equal to 101.5 degrees Fahrenheit, and additional compatible Ebola Virus Disease symptoms Patient denies exposure to infectious person Patient denies travel to an Ebola-affected area in the 21 days before illness onset. ROS: 07/30 06:21 Constitutional: Negative for fever, chills, and weight loss, Eyes: Negative for injury, tw4 pain, redness, and discharge, Cardiovascular: Negative for chest pain, palpitations, and edema, Respiratory: Negative for shortness of breath, cough, wheezing, and pleuritic chest pain. MS/Extremity: Negative for injury and deformity, Skin: Negative for injury, rash, and discoloration. Abdomen/GI: Positive for rectal bleeding. Exam: 06:21 Constitutional: This is a well developed, well nourished patient who is awake, alert, tw4 and in no acute distress. Head/Face: Normocephalic, atraumatic. Chest/axilla: Normal chest wall appearance and motion. Nontender with no deformity. No lesions are appreciated. Cardiovascular: Regular rate and rhythm with a normal S1 and S2. No gallops, murmurs, or rubs. Normal PMI, no JVD. No pulse deficits. Respiratory: Lungs have equal breath sounds bilaterally, clear to auscultation and percussion. No rales, rhonchi or wheezes noted. No increased work of breathing, no retractions or nasal flaring. 06:21 Abdomen/GI: Inspection: abdomen appears normal, Bowel sounds: normal, Palpation: abdomen is soft and non-tender. 06:21 Abdomen/GI: Rectal exam: rectal tone normal, Stool: normal. tw4 Vital Signs: 07/29 22:04 BP 189 / 97; Pulse 72; Resp 18; Temp 98.0; Pulse Ox 95% on R/A; Weight 68.04 kg (R); ao Height 5 ft. 2 in. (157.48 cm); Pain 0/10; 22:06 BP 161 / 95; Pulse 67; Resp 18; Temp 98; Pulse Ox 97% on R/A; ea 23:33 BP 152 / 87; Pulse 64; Resp 18; Pulse Ox 96% ; ea 07/30 00:00 BP 148 / 79; Pulse 62; Resp 17; Pulse Ox 98% on R/A; rr5 01:00 BP 157 / 87; Pulse 61; Resp 17; Pulse Ox 99% on R/A; rr5 02:14 BP 142 / 77; Pulse 65; Resp 16; Pulse Ox 99% on R/A; rr5 02:30 BP 169 / 70; Pulse 66; Resp 18; Temp 97.6; Pulse Ox 98% on R/A; Pain 0/10; ao 07/29 22:04 Body Mass Index 27.44 (68.04 kg, 157.48 cm) ao MDM: 07/29 22:25 Patient medically screened. tw4 07/30 06:21 Data reviewed: vital signs, nurses notes. Counseling: I had a detailed discussion with tw4 the patient and/or guardian regarding: the historical points, exam findings, and any diagnostic results supporting the discharge/admit diagnosis. 06:21 Differential diagnosis: hemorrhoids, fissure, abscess. Data interpreted: Pulse tw4 oximetry: Interpretation: normal. Special discussion: I discussed with the patient/guardian in detail that at this point there is no indication for admission to the hospital. It is understood, however, that if the symptoms persist or worsen the patient needs to return immediately for re-evaluation. 07/29 22:28 Order name: Basic Metabolic Panel; Complete Time: 01:59 tw4 07/30 01:59 Interpretation: Normal except: CL 110; GFR 51. tw4 07/29 22:28 Order name: CBC with Diff; Complete Time: 01:59 tw4 07/30 01:59 Interpretation: Normal except: RBC 3.67; HGB 11.7; HCT 34.2. tw4 07/29 22:28 Order name: Hepatic Function; Complete Time: 01:59 tw4 07/30 01:59 Interpretation: Normal except: AST 9; TP 6.2. tw4 07/29 22:28 Order name: Lipase; Complete Time: 02:00 tw4 07/30 02:00 Interpretation: Within normal limits: LIP 101. tw4 07/29 22:28 Order name: PT-INR; Complete Time: 02:00 tw4 07/30 02:00 Interpretation: Within normal limits: PT 11.9. tw4 07/29 22:28 Order name: IV Saline Lock; Complete Time: 22:45 tw4 07/29 22:28 Order name: Labs collected and sent; Complete Time: 22:45 tw4 07/29 22:28 Order name: Ptt, Activated tw4 07/30 00:34 Order name: CT Abd/Pelvis - W/Contrast tw4 Administered Medications: No medications were administered Disposition: 07/30/18 02:43 Discharged to Home. Impression: Encounter for screening for lower gastrointestinal disorder, Hemorrhoids and perianal venous thrombosis. - Condition is Stable. - Discharge Instructions: Hemorrhoids, Flexible Sigmoidoscopy. - Prescriptions for Colace 100 mg Oral Tablet - take 1 tablet by ORAL route every 12 hours; 14 tablet. - Medication Reconciliation Form, Thank You Letter, Antibiotic Education, Prescription Opioid Use form. - Follow up: Private Physician; When: Upon discharge from the Emergency Department; Reason: If symptoms return, Further diagnostic work-up, Recheck today's complaints, Continuance of care. Signatures: Dispatcher [employer] [facility] Francis Dietz, RN RN Edgardo Nguyen MD MD tw4 Praful Sanchez RN RN rr5 Corrections: (The following items were deleted from the chart) 07/29 23:44 22:29 Creatinine for Radiology+C.LAB.BRZ ordered. [facility] 07/30 03:00 02:43 07/30/2018 02:43 Discharged to Home. Impression: Encounter for screening for rr5 lower gastrointestinal disorder; Hemorrhoids and perianal venous thrombosis. Condition is Stable. Forms are Medication Reconciliation Form, Thank You Letter, Antibiotic Education, Prescription Opioid Use. Follow up: Private Physician; When: Upon discharge from the Emergency Department; Reason: If symptoms return, Further diagnostic work-up, Recheck today's complaints, Continuance of care. tw4
[2018-07-30 04:51] VITALS: BP 169/70; TEMP 97.6; O2SAT 98
--- NOTE | 2018-07-30 09:41 | EKG ---
Test Date: 2018-07-29 Test Time: 22:05:27 Nitroglycerin Nitrator Operator Batch: DAVID MEASUREMENT RESULTS: Intervals: Rate: 67 MA: 200 QRSD: 72 QT: 416 QTc: 439 [place]: P: 21 MA: 200 QRS: 30 T: 56 INTERPRETIVE STATEMENTS: Normal sinus rhythm Normal ECG Compared to ECG 01/06/2018 14:03:44 No significant changes Electronically Signed On 07-30-18 09:40:31 STRESS ANALYST by Brendan Munoz
--- NOTE | 2018-07-30 11:46 | RAD REPORT ---
EXAM DESCRIPTION: CTAbdomen Pelvis W Contrast - 07/30/2018 5:21 am CLINICAL HISTORY: Abdominal pain. ABD PAIN COMPARISON: Abdomen Pelvis W Contrast dated 12/31/2017; CT ABD PELVIS W CONTRAST dated 02/06/2009 TECHNIQUE: Biphasic CT imaging of the abdomen and pelvis was performed with 100 ml non-ionic IV cont rast. All CT scans are performed using dose optimization technique as appropriate and may include automated exposure control or mA/KV adjustment according to patient size. FINDINGS: The lung bases are clear. The liver, spleen, right adrenal glands and kidneys are within normal limits. Benign 3 cm left renal cyst. Punctate calcifications are seen in the pancreas suggesting chronic pancreatitis. Tiny low-dens ity 5 mm lesion in the pancreatic head may represent a dilated pancreatic side branch. 2.4 cm left ad renal mass is present, stable. Moderate duodenal diverticulum is present. No bowel obstruction, free air, free fluid or abscess. Sigmoid diverticulosis coli without diverticul itis. The appendix is normal. No evidence of significant lymphadenopathy. No suspicious bony findings. IMPRESSION: Prominent diverticulosis coli without diverticulitis 2.4 cm left adrenal mass, stable and favored to represent an adenoma. Chronic pancreatitis findings.
== END 2018-07-30 03:00 | disposition home or self-care (01) ==
LOC: ER 22:00
DX: K64.5 Perianal venous thrombosis (principal); I10 Essential (primary) hypertension; E11.9 Type 2 diabetes mellitus without complications; F17.210 Nicotine dependence, cigarettes, uncomplicated; Z79.82 Long term (current) use of aspirin; Z88.0 Allergy status to penicillin; Z88.8 Allergy status to other drugs, medicaments and biological substances; Z91.040 Latex allergy status
CPT/HCPCS: 36415; 74177; 80048; 80076; 83690; 85025; 85610; 85730; 93005; 99284; Q9967

== ENCOUNTER 2018-10-04 07:57 | Emergency (ER) | payer MEDICARE ==
--- NOTE | 2018-10-04 08:12 | ER ---
Nurse's Notes [facility] Name: Helena Tracy Age: 58 yrs Sex: Female : 1960 Arrival Date: 10/04/2018 Time: 08:00 Bed 13 Private MD: Watson Rios Diagnosis: Otitis media, unspecified, bilateral Presentation: 10/04 08:08 Presenting complaint: Right ear pain, bloody drainage and ear pain x 3 days, left ear hb pain x 1 day. Transition of care: patient was not received from another setting of care. Onset of symptoms was October 02, 2018. Risk Assessment: Do you want to hurt yourself or someone else? Patient reports no desire to harm self or others. Initial Sepsis Screen: Does the patient meet any 2 criteria? No. Patient's initial sepsis screen is negative. Does the patient have a suspected source of infection? No. Patient's initial sepsis screen is negative. Care prior to arrival: None. 08:08 Method Of Arrival: Ambulatory hb 08:08 Acuity: MARYANN 4 hb Triage Assessment: 08:10 General: Appears in no apparent distress. comfortable, Behavior is calm, cooperative. rb1 Historical: - Allergies: 08:10 Latex, Natural Rubber; hb 08:10 Medrol; hb 08:10 PENICILLINS; hb - Home Meds: 08:10 Aspirin Oral [Active]; losartan-hydrochlorothiazide Oral [Active]; hb - PMHx: 08:10 cervical radiculopathy; Depression; Diabetes - NIDDM; Diverticulitis; DVT; RLE; Hernia; hb Hypertension; Osteopenia; SVT; - PSHx: 08:10 right knee replacement; Ear Tubes; Tubal ligation; right foot; rb1 - Immunization history:: Adult Immunizations up to date. - Social history:: Smoking status: Patient/guardian denies using tobacco. - Ebola Screening: : No symptoms or risks identified at this time. Screenin:10 Abuse screen: Denies threats or abuse. Denies injuries from another. Nutritional hb screening: No deficits noted. Tuberculosis screening: No symptoms or risk factors identified. Fall Risk None identified. Assessment: 08:05 General: Appears in no apparent distress. comfortable, Behavior is calm, cooperative, rb1 Denies fever. Pain: Complains of pain in right ear and left ear Pain currently is 10 out of 10 on a pain scale. Pain began 2-3 days ago. Neuro: Level of Consciousness is awake, alert, obeys commands, Oriented to person, place, time, situation. Cardiovascular: Capillary refill < 3 seconds is brisk in bilateral fingers. Respiratory: Airway is patent Respiratory effort is even, unlabored, Respiratory pattern is regular, symmetrical. GI: Reports diarrhea. : No signs and/or symptoms were reported regarding the genitourinary system. EENT: Reports pain in right ear and left ear. Derm: Skin is pink, warm \T\ dry. Vital Signs: 08:08 BP 155 / 90; Pulse 80; Resp 16; Temp 98(O); Pulse Ox 100% on R/A; Pain 3/10; hb ED Course: 08:00 Patient arrived in ED. mr 08:02 Watson Rios MD is Private Physician. mr 08:02 Nakita Rodriguez FNP-C is [facility]. kb 08:02 Nas Gray MD is Attending Physician. kb 08:09 Triage completed. hb 08:10 Arm band placed on. hb 08:10 Patient has correct armband on for positive identification. Bed in low position. Call rb1 light in reach. Side rails up X 1. Pulse ox on. NIBP on. 08:11 Jodie Victoria, RN is Primary Nurse. rb1 08:21 No provider procedures requiring assistance completed. Patient did not have IV access rb1 during this emergency room visit. Administered Medications: 08:16 Drug: Zithromax 500 mg Route: PO; rb1 Outcome: 08:12 Discharge ordered by . kb 08:21 Patient left the ED. rb1 08:21 Discharged to home ambulatory. rb1 08:21 Condition: stable 08:21 Discharge instructions given to patient, Instructed on discharge instructions, follow up and referral plans. medication usage, Demonstrated understanding of instructions, follow-up care, medications, Prescriptions given X 1. Signatures: Nakita Rodriguez FNP-C FNP-Ckb Charito Valdez Jodie Victoria, RN RN rb1 Anh Merritt RN RN Corrections: (The following items were deleted from the chart) 08:25 08:10 PSHx: None; hb rb1
--- NOTE | 2018-10-04 08:13 | EDPHYS ---
Physician Documentation [facility] Name: Helena Tracy Age: 58 yrs Sex: Female : 1960 Arrival Date: 10/04/2018 Time: 08:00 Bed 13 Private MD: Watson Rios ED Physician Nas Gray HPI: 10/04 08:11 This 58 yrs old Female presents to ER via Ambulatory with complaints of Ear kb Pain. 08:11 The patient presents with a fullness, hearing loss, partial, pain. The complaints kb affect the right ear and left ear. Onset: The symptoms/episode began/occurred 2 day(s) ago. Modifying factors: The symptoms are alleviated by nothing, the symptoms are aggravated by nothing. Associated signs and symptoms: The patient has no apparent associated signs or symptoms. Severity of symptoms: At their worst the symptoms were moderate in the emergency department the symptoms are unchanged. The patient has experienced similar episodes in the past. The patient has not recently seen a physician. Historical: - Allergies: 08:10 Latex, Natural Rubber; hb 08:10 Medrol; hb 08:10 PENICILLINS; hb - Home Meds: 08:10 Aspirin Oral [Active]; losartan-hydrochlorothiazide Oral [Active]; hb - PMHx: 08:10 cervical radiculopathy; Depression; Diabetes - NIDDM; Diverticulitis; DVT; RLE; Hernia; hb Hypertension; Osteopenia; SVT; - PSHx: 08:10 right knee replacement; Ear Tubes; Tubal ligation; right foot; rb1 - Immunization history:: Adult Immunizations up to date. - Social history:: Smoking status: Patient/guardian denies using tobacco. - Ebola Screening: : No symptoms or risks identified at this time. ROS: 08:10 Constitutional: Negative for fever, chills, and weight loss, Neck: Negative for injury, kb pain, and swelling, Cardiovascular: Negative for chest pain, palpitations, and edema, Respiratory: Negative for shortness of breath, cough, wheezing, and pleuritic chest pain, Abdomen/GI: Negative for abdominal pain, nausea, vomiting, diarrhea, and constipation, MS/Extremity: Negative for injury and deformity, Skin: Negative for injury, rash, and discoloration, Neuro: Negative for headache, weakness, numbness, tingling, and seizure. 08:10 ENT: Positive for ear pain. Exam: 08:10 Constitutional: This is a well developed, well nourished patient who is awake, alert, kb and in no acute distress. Head/Face: Normocephalic, atraumatic. Chest/axilla: Normal chest wall appearance and motion. Nontender with no deformity. No lesions are appreciated. Cardiovascular: Regular rate and rhythm with a normal S1 and S2. No gallops, murmurs, or rubs. Normal PMI, no JVD. No pulse deficits. Respiratory: Lungs have equal breath sounds bilaterally, clear to auscultation and percussion. No rales, rhonchi or wheezes noted. No increased work of breathing, no retractions or nasal flaring. Abdomen/GI: Soft, non-tender, with normal bowel sounds. No distension or tympany. No guarding or rebound. No evidence of tenderness throughout. Skin: Warm, dry with normal turgor. Normal color with no rashes, no lesions, and no evidence of cellulitis. MS/ Extremity: Pulses equal, no cyanosis. Neurovascular intact. Full, normal range of motion. Neuro: Awake and alert, GCS 15, oriented to person, place, time, and situation. Cranial nerves II-XII grossly intact. Motor strength 5/5 in all extremities. Sensory grossly intact. Cerebellar exam normal. Normal gait. 08:10 ENT: External ear(s): are unremarkable, Ear canal(s): are normal, TM's: bulging, bilaterally, erythema, that is moderate, bilaterally, fluid levels, on the left, Nose: is normal, Mouth: is normal. Vital Signs: 08:08 BP 155 / 90; Pulse 80; Resp 16; Temp 98(O); Pulse Ox 100% on R/A; Pain 3/10; hb MDM: 08:04 Patient medically screened. kb 08:10 Data reviewed: vital signs, nurses notes. Data interpreted: Pulse oximetry: on room air kb is 100 %. Interpretation: normal. Counseling: I had a detailed discussion with the patient and/or guardian regarding: the historical points, exam findings, and any diagnostic results supporting the discharge/admit diagnosis, the need for outpatient follow up, an ENT specialist, to return to the emergency department if symptoms worsen or persist or if there are any questions or concerns that arise at home. Administered Medications: 08:16 Drug: Zithromax 500 mg Route: PO; rb1 Disposition: 10:18 Co-signature as Attending Physician, Nas Gray MD. rn Disposition: 10/04/18 08:12 Discharged to Home. Impression: Otitis media, unspecified, bilateral. - Condition is Stable. - Discharge Instructions: Otitis Media, Adult, [id number]. - Prescriptions for Zithromax 500 mg Oral Tablet - take 1 tablet by ORAL route once daily for 5 days; 5 tablet. - Medication Reconciliation Form, Thank You Letter, Antibiotic Education, Prescription Opioid Use form. - Follow up: Emergency Department; When: As needed; Reason: Worsening of condition. Follow up: Private Physician; When: 2 - 3 days; Reason: Recheck today's complaints, Continuance of care, Re-evaluation by your physician. Signatures: Nakita Rodriguez, NEW GRAD RN-C NEW GRAD RN-Ckb Nas Gray MD MD rn Barber, Rebecca, RN RN rb1 Anh Merritt RN RN Corrections: (The following items were deleted from the chart) 08:21 08:12 10/04/2018 08:12 Discharged to Home. Impression: Otitis media, unspecified, rb1 bilateral. Condition is Stable. Forms are Medication Reconciliation Form, Thank You Letter, Antibiotic Education, Prescription Opioid Use. Follow up: Emergency Department; When: As needed; Reason: Worsening of condition. Follow up: Private Physician; When: 2 - 3 days; Reason: Recheck today's complaints, Continuance of care, Re-evaluation by your physician. kb 08:25 08:10 PSHx: None; hb rb1
[2018-10-04] MEDS ORDERED: AZITHROMYCIN 250 MG TAB ONE (08:24)
[2018-10-04 08:46] VITALS: BP 155/90; TEMP 98; O2SAT 100
== END 2018-10-04 08:21 | disposition home or self-care (01) ==
LOC: ER 07:57
DX: H66.93 Otitis media, unspecified, bilateral (principal); I10 Essential (primary) hypertension; E11.9 Type 2 diabetes mellitus without complications; Z79.82 Long term (current) use of aspirin; Z86.718 Personal history of other venous thrombosis and embolism; Z88.0 Allergy status to penicillin; Z88.8 Allergy status to other drugs, medicaments and biological substances; Z91.040 Latex allergy status; Z91.048 Other nonmedicinal substance allergy status
CPT/HCPCS: 99283

== ENCOUNTER 2020-09-06 09:58 | Emergency (ER) | payer MEDICARE ==
[2020-09-06 10:31] LABS: Basophils % 0.7 % (0-1.3); Hematocrit 41.4 % (36.0-45.0); Lymphocytes % 14.1 % (15.3-44.8); MPV 7.4 fL (7.6-11.3); RBC Red Blood Cell Count 4.42 M/uL (3.86-4.86)
[2020-09-06 10:43] LABS: Albumin 3.6 g/dL (3.4-5.0); Bilirubin Direct 0.1 mg/dL (0-0.2); Bilirubin Total 0.4 mg/dL (0.2-1.0); Potassium 3.7 mmol/L (3.5-5.1); Protein, Total 7.4 g/dL (6.4-8.2)
--- NOTE | 2020-09-06 10:43 | RAD REPORT ---
EXAM DESCRIPTION: CT - Abdomen Pelvis W Contrast - 09/06/2020 10:30 am CLINICAL HISTORY: Abdominal pain/hematochezia COMPARISON: 2008 and 2017 TECHNIQUE: Computed axial tomography of the abdomen pelvis was obtained. 100 cc Isovue-300 was admin istered intravenously. Oral contrast was not requested which limits evaluation of bowel. All CT scans are performed using dose optimization technique as appropriate and may include automated exposure control or mA/KV adjustment according to patient size. FINDINGS: Punctate pancreatic calcifications unchanged. Small diverticulum extends from the posterio r gastric fundus The liver, spleen, right adrenal and right kidney unremarkable 2.6 centimeter left adrenal mass unchanged from 2008 compatible with an adenoma. 3.6 centimeter left renal cyst. Normal appendix Diverticulosis without diverticulitis Moderate to marked thickening of the wall of the descending and sigmoid colon compatible with colitis IMPRESSION: Moderate to marked left colitis
[2020-09-06] MEDS ORDERED: CIPROFLOXACIN HCL 500 MG TAB ONE (10:46)
[2020-09-06] MEDS ORDERED: metroNIDAZOLE 500 MG TABLET ONE (10:46)
[2020-09-06] MEDS ORDERED: NA CHLORIDE 0.9% 500 ML ONE (10:46)
[2020-09-06] MEDS ORDERED: FAMOTIDINE 20 MG/2 ML VIAL IV ONE (10:47)
--- NOTE | 2020-09-06 10:57 | EDPHYS ---
Physician Documentation [facility] Name: Helena Tracy Age: 60 yrs Sex: Female : 1960 Arrival Date: 09/06/2020 Time: 10:03 Bed 7 Private MD: ED Physician Kelvin Herman HPI: 09/06 10:18 This 60 yrs old Female presents to ER via EMS with complaints of low kdr abdominal pain and rectal bleeding. 10:18 The patient presents with abdominal pain in the lower abdomen. Onset: The kdr symptoms/episode began/occurred gradually, last night. The symptoms do not radiate. Associated signs and symptoms: Pertinent positives: blood in stools, diarrhea, nausea. The symptoms are described as achy, dull, sharp, steady, vague. Modifying factors: The symptoms are alleviated by nothing, the symptoms are aggravated by nothing. Severity of pain: At its worst the pain was a 7 / 10. The patient has experienced similar episodes in the past, a few times. The patient has not recently seen a physician. Historical: - Allergies: 10:10 Latex, Natural Rubber; jl7 10:10 Medrol; jl7 10:10 PENICILLINS; jl7 - Home Meds: 10:10 losartan 100 mg oral tab 1 tab once daily [Active]; escitalopram oxalate 20 mg oral tab jl7 1 tab once daily [Active]; trazodone 50 mg Oral tab [Active]; [place] 7.5-325 mg Oral tab [Active]; - PMHx: 10:10 cervical radiculopathy; Depression; Diverticulitis; DVT; RLE; Hernia; Hypertension; jl7 Osteopenia; SVT; - Immunization history:: Adult Immunizations up to date. - Social history:: Smoking status: Patient reports the use of cigarette tobacco products, smokes one-half pack cigarettes per day. ROS: 10:18 Constitutional: Negative for fever, chills, and weight loss, Eyes: Negative for injury, kdr pain, redness, and discharge, ENT: Negative for injury, pain, and discharge, Neck: Negative for injury, pain, and swelling, Cardiovascular: Negative for chest pain, palpitations, and edema, Respiratory: Negative for shortness of breath, cough, wheezing, and pleuritic chest pain, Back: Negative for injury and pain, : Negative for injury, bleeding, discharge, and swelling, MS/Extremity: Negative for injury and deformity, Skin: Negative for injury, rash, and discoloration, Neuro: Negative for headache, weakness, numbness, tingling, and seizure activity. Psych: Negative for depression, anxiety, suicide ideation, homicidal ideation, and hallucinations, Allergy/Immunology: Negative for hives, rash, and allergies, Endocrine: Negative for neck swelling, polydipsia, polyuria, polyphagia, and marked weight changes, Hematologic/Lymphatic: Negative for swollen nodes, abnormal bleeding, and unusual bruising. 10:18 Abdomen/GI: Positive for abdominal pain, nausea, diarrhea, rectal bleeding. Exam: 10:18 Constitutional: This is a well developed, well nourished patient who is awake, alert, kdr and in no acute distress. Head/Face: Normocephalic, atraumatic. Eyes: Pupils equal round and reactive to light, extra-ocular motions intact. Lids and lashes normal. Conjunctiva and sclera are non-icteric and not injected. Cornea within normal limits. Periorbital areas with no swelling, redness, or edema. Neck: Trachea midline, no thyromegaly or masses palpated, and no cervical lymphadenopathy. Supple, full range of motion without nuchal rigidity, or vertebral point tenderness. No Meningismus. Chest/axilla: Normal chest wall appearance and motion. Nontender with no deformity. No lesions are appreciated. Cardiovascular: Regular rate and rhythm with a normal S1 and S2. No gallops, murmurs, or rubs. Normal PMI, no JVD. No pulse deficits. Respiratory: Lungs have equal breath sounds bilaterally, clear to auscultation and percussion. No rales, rhonchi or wheezes noted. No increased work of breathing, no retractions or nasal flaring. Back: No spinal tenderness. No costovertebral tenderness. Full range of motion. Skin: Warm, dry with normal turgor. Normal color with no rashes, no lesions, and no evidence of cellulitis. MS/ Extremity: Pulses equal, no cyanosis. Neurovascular intact. Full, normal range of motion. Neuro: Awake and alert, GCS 15, oriented to person, place, time, and situation. Cranial nerves II-XII grossly intact. Motor strength 5/5 in all extremities. Sensory grossly intact. Cerebellar exam normal. Normal gait. Psych: Awake, alert, with orientation to person, place and time. Behavior, mood, and affect are within normal limits. 10:18 Abdomen/GI: Inspection: abdomen appears normal, Bowel sounds: diminished, in all quadrants, Palpation: soft, mild abdominal tenderness, in the suprapubic area, right lower quadrant and left lower quadrant, mass, is not appreciated, rebound tenderness, is not appreciated. Vital Signs: 10:04 BP 139 / 110; Pulse 99; Resp 17; Temp 97.9; Pulse Ox 98% ; Weight 68.95 kg; Height 5 jl7 ft. 4 in. (162.56 cm); Pain 7/10; 10:30 BP 138 / 106; Pulse 104; Resp 16; Pulse Ox 98% ; bp 11:23 BP 155 / 110; Pulse 90; Resp 17; Temp 98; Pulse Ox 99% ; bp 10:04 Body Mass Index 26.09 (68.95 kg, 162.56 cm) jl7 MDM: 10:56 Patient medically screened. kdr 11:02 Data reviewed: vital signs, nurses notes, lab test result(s), radiologic studies. kdr Counseling: I had a detailed discussion with the patient and/or guardian regarding: the historical points, exam findings, and any diagnostic results supporting the discharge/admit diagnosis, lab results, radiology results, the need for outpatient follow up. 09/06 10:07 Order name: Basic Metabolic Panel; Complete Time: 10:50 kdr 09/06 10:07 Order name: CBC with Diff; Complete Time: 10:50 kdr 09/06 10:07 Order name: Hepatic Function; Complete Time: 10:50 kdr 09/06 10:07 Order name: Lipase; Complete Time: 10:50 kdr 09/06 10:18 Order name: CT Abd/Pelvis - IV Contrast Only; Complete Time: 10:50 kdr 09/06 10:49 Order name: CREATININE WHOLE BLOOD EDMS 09/06 10:07 Order name: IV Saline Lock; Complete Time: 10:22 kdr 09/06 10:07 Order name: Labs collected and sent; Complete Time: 10:22 kdr Administered Medications: 10:30 Drug: NS 0.9% 500 ml Route: IV; Rate: bolus; Site: right antecubital; bp 11:25 Follow up: IV Status: Completed infusion; IV Intake: 500ml bp 10:30 Drug: Cipro 500 mg Route: PO; bp 11:25 Follow up: Response: No adverse reaction bp 10:30 Drug: Flagyl 500 mg Route: PO; bp 11:26 Follow up: Response: No adverse reaction bp 10:30 Drug: Pepcid 20 mg Route: IVP; Site: right antecubital; bp 11:25 Follow up: Response: No adverse reaction bp Disposition: 09/06/20 10:56 Discharged to Home. Impression: Abdominal and pelvic pain, Moderate left Sided Colitis. - Condition is Stable. - Discharge Instructions: Abdominal Pain, Adult, [id number], Colitis. - Prescriptions for Bentyl 20 mg Oral Tablet - take 1 tablet by ORAL route every 6 hours As needed; 20 tablet. Cipro 500 mg Oral Tablet - take 1 tablet by ORAL route every 12 hours for 10 days; 20 tablet. Flagyl 500 mg Oral Tablet - take 1 tablet by ORAL route every 6 hours for 10 days; 40 tablet. Zofran 4 mg Oral Tablet - take 1 tablet by ORAL route every 4-6 hours As needed; 12 tablet. - Medication Reconciliation Form, Thank You Letter, Antibiotic Education form. - Follow up: Private Physician; When: 2 - 3 days; Reason: If symptoms return, Further diagnostic work-up, Recheck today's complaints, Continuance of care, Re-evaluation by your physician. - Problem is new. - Symptoms have improved. Signatures: Dispatcher [employer] EDMS Kelvin Herman MD MD kdr Leal, Jahala, RN RN jl7 Danial Sandhu RN RN bp Corrections: (The following items were deleted from the chart) 11:03 10:56 09/06/2020 10:56 Discharged to Home. Impression: Abdominal and pelvic pain. kdr Condition is Stable. Forms are Medication Reconciliation Form, Thank You Letter, Antibiotic Education, Prescription Opioid Use. Follow up: Private Physician; When: 2 - 3 days; Reason: If symptoms return, Further diagnostic work-up, Recheck today's complaints, Continuance of care, Re-evaluation by your physician. Problem is new. Symptoms have improved. kdr 11:26 11:03 09/06/2020 10:56 Discharged to Home. Impression: Abdominal and pelvic pain; bp Moderate left Sided Colitis. Condition is Stable. Forms are Medication Reconciliation Form, Thank You Letter, Antibiotic Education, Prescription Opioid Use. Follow up: Private Physician; When: 2 - 3 days; Reason: If symptoms return, Further diagnostic work-up, Recheck today's complaints, Continuance of care, Re-evaluation by your physician. Problem is new. Symptoms have improved. kdr
--- NOTE | 2020-09-06 10:57 | ER ---
Nurse's Notes [facility] Name: Helena Tracy Age: 60 yrs Sex: Female : 1960 Arrival Date: 09/06/2020 Time: 10:03 Bed 7 Private MD: Diagnosis: Abdominal and pelvic pain;Moderate left Sided Colitis Presentation: 09/06 10:04 Chief complaint: EMS states: Lower abd pain, hx of diverticulitis, vomited x2 last jl7 night, diarrhea with bright red blood today. Coronavirus screen: Client denies travel out of the [place] in the last 14 days. At this time, the client does not indicate any symptoms associated with coronavirus-19. Ebola Screen: No symptoms or risks identified at this time. Initial Sepsis Screen: Does the patient meet any 2 criteria? No. Patient's initial sepsis screen is negative. Does the patient have a suspected source of infection? No. Patient's initial sepsis screen is negative. Risk Assessment: Do you want to hurt yourself or someone else? Patient reports no desire to harm self or others. Onset of symptoms was September 05, 2020. Care prior to arrival: None. Transition of care: patient was not received from another setting of care. 10:04 Method Of Arrival: EMS: [facility] jl7 10:04 Acuity: MARYANN 3 jl7 Triage Assessment: 10:10 General: Appears in no apparent distress. uncomfortable, Behavior is calm, cooperative, jl7 appropriate for age. Pain: Complains of pain in right lower quadrant and left lower quadrant Pain currently is 7 out of 10 on a pain scale. Neuro: Level of Consciousness is awake, alert, obeys commands, Oriented to person, place, time, situation. Cardiovascular: Patient's skin is warm and dry. Respiratory: Airway is patent Respiratory effort is even, unlabored, Respiratory pattern is regular, symmetrical. GI: Abdomen is non-distended, Reports diarrhea, rectal bleeding, vomiting. : No signs and/or symptoms were reported regarding the genitourinary system. Derm: Skin is pink, warm \T\ dry. Historical: - Allergies: 10:10 Latex, Natural Rubber; jl7 10:10 Medrol; jl7 10:10 PENICILLINS; jl7 - Home Meds: 10:10 losartan 100 mg oral tab 1 tab once daily [Active]; escitalopram oxalate 20 mg oral tab jl7 1 tab once daily [Active]; trazodone 50 mg Oral tab [Active]; [place] 7.5-325 mg Oral tab [Active]; - PMHx: 10:10 cervical radiculopathy; Depression; Diverticulitis; DVT; RLE; Hernia; Hypertension; jl7 Osteopenia; SVT; - Immunization history:: Adult Immunizations up to date. - Social history:: Smoking status: Patient reports the use of cigarette tobacco products, smokes one-half pack cigarettes per day. Screenin:30 Abuse screen: Denies threats or abuse. Denies injuries from another. Nutritional bp screening: No deficits noted. Tuberculosis screening: No symptoms or risk factors identified. Fall Risk None identified. Assessment: 10:10 General: SEE TRIAGE NOTE. bp 10:30 Reassessment: Patient appears in no apparent distress at this time. No changes from bp previously documented assessment. Patient and/or family updated on plan of care and expected duration. Pain level reassessed. PT RETURNED FROM CT. 11:23 Reassessment: PT D/C HOME AMBULATORY, DX WITH COLITIS. bp Vital Signs: 10:04 BP 139 / 110; Pulse 99; Resp 17; Temp 97.9; Pulse Ox 98% ; Weight 68.95 kg; Height 5 jl7 ft. 4 in. (162.56 cm); Pain 7/10; 10:30 BP 138 / 106; Pulse 104; Resp 16; Pulse Ox 98% ; bp 11:23 BP 155 / 110; Pulse 90; Resp 17; Temp 98; Pulse Ox 99% ; bp 10:04 Body Mass Index 26.09 (68.95 kg, 162.56 cm) jl7 ED Course: 10:03 Patient arrived in ED. em1 10:04 Shania Villagran, VIKASH is Primary Nurse. jl7 10:04 Patient has correct armband on for positive identification. Placed in gown. Bed in low 5 position. Call light in reach. Side rails up X 1. Warm blanket given. environmental monitoring specialist on. Pulse ox on. NIBP on. 10:06 Kelvin Herman MD is Attending Physician. kdr 10:08 Triage completed. jl7 10:10 Arm band placed on right wrist. jl7 10:21 Basic Metabolic Panel Sent. mh5 10:22 CBC with Diff Sent. [facility] 10:22 Hepatic Function Sent. [facility] 10:22 Lipase Sent. [facility] 10:22 Initial lab(s) drawn, by me, sent to lab. Inserted saline lock: 22 gauge in right 5 forearm, using aseptic technique. Blood collected. 10:31 CT Abd/Pelvis - IV Contrast Only In Process Unspecified. EDMS 11:23 No provider procedures requiring assistance completed. IV discontinued, intact, bp bleeding controlled, No redness/swelling at site. Pressure dressing applied. Administered Medications: 10:30 Drug: NS 0.9% 500 ml Route: IV; Rate: bolus; Site: right antecubital; bp 11:25 Follow up: IV Status: Completed infusion; IV Intake: 500ml bp 10:30 Drug: Cipro 500 mg Route: PO; bp 11:25 Follow up: Response: No adverse reaction bp 10:30 Drug: Flagyl 500 mg Route: PO; bp 11:26 Follow up: Response: No adverse reaction bp 10:30 Drug: Pepcid 20 mg Route: IVP; Site: right antecubital; bp 11:25 Follow up: Response: No adverse reaction bp Intake: 11:25 IV: 500ml; Total: 500ml. bp Outcome: 10:56 Discharge ordered by . kdr 11:23 Discharged to home ambulatory. bp 11:23 Condition: stable 11:23 Discharge instructions given to patient, Instructed on discharge instructions, follow up and referral plans. medication usage, Demonstrated understanding of instructions, follow-up care, medications, Prescriptions given X 4. 11:26 Patient left the ED. bp Signatures: Dispatcher [employer] EDGA Kelvin Herman MD MD kdr Martinez, Eric em1 Martinez, Maria [facility] Shania Villagran, RN RN jl7 Danial Sandhu, RN RN bp
[2020-09-06 11:36] VITALS: BP 155/110; TEMP 98; O2SAT 99
== END 2020-09-06 11:26 | disposition home or self-care (01) ==
LOC: ER 09:58
DX: K51.50 Left sided colitis without complications (principal); I10 Essential (primary) hypertension; F32.9 Major depressive disorder, single episode, unspecified; F17.210 Nicotine dependence, cigarettes, uncomplicated; Z88.0 Allergy status to penicillin; Z88.8 Allergy status to other drugs, medicaments and biological substances; Z86.718 Personal history of other venous thrombosis and embolism; Z91.040 Latex allergy status; Z91.048 Other nonmedicinal substance allergy status
CPT/HCPCS: 96361; 85025; 80048; 36415; 82565; 80076; 83690; 74177; 96374; 99284; Q9967; J7040

== ENCOUNTER 2022-02-03 22:32 | Emergency (ER) | payer OTHER ==
[2022-02-03] MEDS ORDERED: ONDANSETRON 4 MG/2 ML VIAL ONE (23:34)
[2022-02-03] MEDS ORDERED: MEPERIDINE HCL 25 MG/ML SYR ONE (23:42)
--- NOTE | 2022-02-04 00:30 | EDPHYS ---
Physician Documentation [facility] Name: Helena Tracy Age: 61 yrs Sex: Female : 1960 Arrival Date: 02/03/2022 Time: 22:34 Bed 2 Private MD: ED Physician Nas Gray HPI: 02/03 23:18 This 61 yrs old Female presents to ER via Ambulatory with complaints of Arm Injury, rn Fall Injury, Hand Injury. 23:18 The patient or guardian complains of decreased range of motion, injury, pain, that is rn rehabilitation. The complaints affect the right elbow, right wrist and palmar aspect of right forearm. Onset: The symptoms/episode began/occurred today. Modifying factors: The symptoms are alleviated by nothing. the symptoms are aggravated by movement. Severity of symptoms: At their worst the symptoms were moderate, in the emergency department the symptoms are unchanged. The patient has not experienced similar symptoms in the past. The patient has not recently seen a physician. Pt reports fall while walking, tripped over rock. injured right wrist and elbow. No other known injury. Not sure if hit head. Doesn't take blood thinners. In triage, patient reporting a lot of pain, became tachycardic and passed out. Woke up immediately, no seizure activity, and currently only reports pain to right wrist/forearm/elbow.. Historical: - Allergies: 22:59 Latex, Natural Rubber; bb 22:59 Medrol; bb 22:59 PENICILLINS; bb - PMHx: 22:59 cervical radiculopathy; Depression; Diabetes - NIDDM; Diverticulitis; DVT; RLE; Hernia; bb Hypertension; Osteopenia; SVT; - Immunization history:: Client reports receiving the 2nd dose of the Covid vaccine, Pfizer x 2. - Social history:: Smoking status: Patient reports the use of cigarette tobacco products. - Family history:: not pertinent. - Hospitalizations: : No recent hospitalization is reported. ROS: 23:18 Constitutional: Negative for fever, chills, and weight loss, Eyes: Negative for injury, rn pain, redness, and discharge, Neck: Negative for injury, pain, and swelling, Cardiovascular: Negative for chest pain, palpitations, and edema, Respiratory: Negative for shortness of breath, cough, wheezing, and pleuritic chest pain, Abdomen/GI: Negative for abdominal pain, nausea, vomiting, diarrhea, and constipation, Back: Negative for injury and pain, MS/Extremity: + injury and pain to right elbow/wrist/forearm/hand Skin: + abrasion to left thumb. Neuro: Negative for headache, weakness, numbness, tingling, and seizure. Exam: 23:18 Constitutional: This is a well developed, well nourished patient who is awake, alert, rn and in no acute distress. Head/Face: Normocephalic, atraumatic. Eyes: Pupils equal round and reactive to light, extra-ocular motions intact. Periorbital areas with no swelling, redness, or edema. ENT: No oral trauma Cardiovascular: Regular rate and rhythm. No pulse deficits. Respiratory: No increased work of breathing, no retractions or nasal flaring. Abdomen/GI: soft, non-tender Skin: Warm, dry, subcentimeter very superficial laceration to left thumb, no active bleeding, no gaping, doesn't require sutures. MS/ Extremity: Pulses equal, no cyanosis. Neurovascular intact. + mild painful ROM right elbow, + tenderness along right forearm without deformity, + tenderness distal wrist, + tenderness dorsum of hand without deformity/swelling/ecchymosis, no gross deformity of fingers Neuro: Awake and alert, GCS 15, oriented to person, place, time, and situation. Cranial nerves II-XII grossly intact. Motor strength 5/5 in all extremities. Sensory grossly intact. Cerebellar exam normal. Vital Signs: 22:56 BP 149 / 101; Pulse 72; Resp 16 S; Temp 98.4(O); Pulse Ox 98% on R/A; Weight 74.84 kg bb (R); Height 5 ft. 4 in. (162.56 cm) (R); Pain 10/10; 02/04 01:10 BP 111 / 93; Pulse 62; Resp 17; Pulse Ox 99% on R/A; lg3 02/03 22:56 Body Mass Index 28.32 (74.84 kg, 162.56 cm) bb MDM: 02/03 22:55 Patient medically screened. rn 02/04 00:28 Differential diagnosis: closed fracture, contusion. Data reviewed: vital signs, nurses rn notes, radiologic studies, CT scan, plain films, and as a result, I will discharge patient. Counseling: I had a detailed discussion with the patient and/or guardian regarding: the historical points, exam findings, and any diagnostic results supporting the discharge/admit diagnosis, radiology results, the need for outpatient follow up, to return to the emergency department if symptoms worsen or persist or if there are any questions or concerns that arise at home. Response to treatment: the patient's symptoms have mildly improved after treatment, and as a result, I will discharge patient. Special discussion: I discussed with the patient/guardian in detail that at this point there is no indication for admission to the hospital. It is understood, however, that if the symptoms persist or worsen the patient needs to return immediately for re-evaluation. ED course: CT head neg, xrays right arm neg. Will dc home with ice/rest. 02/03 23:05 Order name: XRAY Forearm RIGHT rn 02/03 23:05 Order name: CT Head Brain wo Cont rn 02/03 23:25 Order name: Wrist Right 2 View EDOH 02/03 23:05 Order name: EKG; Complete Time: 23:06 rn 02/03 23:05 Order name: EKG - Nurse/Tech; Complete Time: 23:13 rn 02/03 23:05 Order name: Cardiac monitoring; Complete Time: 23:13 rn 02/03 23:05 Order name: O2 Sat Monitoring; Complete Time: 23:13 rn 02/03 23:25 Order name: Hand Right 2 View EDOH 02/03 23:25 Order name: Elbow Right 2 View EDOH 02/04 00:34 Order name: Splint - Volar Wrist Splint; Complete Time: 00:53 rn Administered Medications: 02/03 23:34 Drug: Zofran (Ondansetron) 4 mg Route: IVP; Site: left antecubital; lg3 23:34 Follow up: Response: No adverse reaction lg3 23:39 Drug: Demerol (meperidine) 25 mg Route: IVP; Site: left antecubital; lg3 23:39 Follow up: Response: No adverse reaction lg3 Disposition Summary: 02/04/22 00:29 Discharge Ordered Location: Home rn Problem: new rn Symptoms: have improved rn Condition: Stable rn Diagnosis - Contusion of right wrist rn - Contusion of right hand rn - Contusion of right elbow rn Followup: rn - With: Private Physician - When: As needed - Reason: Recheck today's complaints, Re-evaluation by your physician Discharge Instructions: - Discharge Summary Sheet rn - Hand Contusion rn - Elbow Contusion rn - Wrist Sprain, Adult rn Forms: - Medication Reconciliation Form rn - Thank You Letter rn - Antibiotic office rn - Prescription Opioid Use rn Prescriptions: - Tramadol 50 mg Oral Tablet - take 1 tablet by ORAL route every 8 hours as needed; 12 tablet; Refills: 0, rn Product Selection Permitted Signatures: Dispatcher [employer] EDMS Rosemarie Gorman RN RN bb Nieto, Roman, MD MD rn Gibson, Lacie, RN RN lg3 Corrections: (The following items were deleted from the chart) 23:25 23:06 Wrist Right 3 View+RAD.RAD.BRZ ordered. EDMS EDMS 23:25 23:06 Hand Right 3 View+RAD.RAD.BRZ ordered. EDMS EDMS 23:25 23:06 Elbow Right 3 View+RAD.RAD.BRZ ordered. EDMS EDMS
--- NOTE | 2022-02-04 00:30 | ER ---
Nurse's Notes [facility] Name: Helena Tracy Age: 61 yrs Sex: Female : 1960 Arrival Date: 02/03/2022 Time: 22:34 Bed 2 Private MD: Diagnosis: Contusion of right wrist;Contusion of right hand;Contusion of right elbow Presentation: 02/03 22:56 Chief complaint: Patient states: she had a fall around 1900 and injured her right bb wrist, during triage pt went unresponsive and vomited for several seconds pt was then awake and alert states she does not think she hit her head during the fall. Coronavirus screen: At this time, the client does not indicate any symptoms associated with coronavirus-19. Ebola Screen: No symptoms or risks identified at this time. Initial Sepsis Screen: Does the patient meet any 2 criteria? No. Patient's initial sepsis screen is negative. Does the patient have a suspected source of infection? No. Patient's initial sepsis screen is negative. Risk Assessment: Do you want to hurt yourself or someone else? Patient reports no desire to harm self or others. Onset of symptoms was February 03, 2022. 22:56 Method Of Arrival: Ambulatory 22:56 Acuity: MARYANN 3 bb 23:[address] Gray notified of pt response in triage. Triage Assessment: 02/04 01:12 Injury Description: fall. lg3 Historical: - Allergies: 02/03 22:59 Latex, Natural Rubber; bb 22:59 Medrol; bb 22:59 PENICILLINS; bb - PMHx: 22:59 cervical radiculopathy; Depression; Diabetes - NIDDM; Diverticulitis; DVT; RLE; Hernia; bb Hypertension; Osteopenia; SVT; - Immunization history:: Client reports receiving the 2nd dose of the Covid vaccine, Pfizer x 2. - Social history:: Smoking status: Patient reports the use of cigarette tobacco products. - Family history:: not pertinent. - Hospitalizations: : No recent hospitalization is reported. Screenin:59 Abuse screen: Denies threats or abuse. Nutritional screening: No deficits noted. vc1 Tuberculosis screening: No symptoms or risk factors identified. Fall Risk None identified. Assessment: 02/02 23:00 General: Appears in no apparent distress. comfortable, Behavior is calm, cooperative, vc1 appropriate for age. Pain: Complains of pain in right wrist Pain does not radiate. Pain currently is 5 out of 10 on a pain scale. Neuro: Level of Consciousness is awake, alert, obeys commands, Oriented to person, place, time, situation, Appropriate for age. Cardiovascular: Capillary refill < 3 seconds Patient's skin is warm and dry. Respiratory: Airway is patent Respiratory effort is even, unlabored, Respiratory pattern is regular, symmetrical. GI: Abdomen is round non-distended, Reports nausea, vomiting. : No deficits noted. : No deficits noted. Musculoskeletal: Reports pain in right wrist. 02/04 01:10 Reassessment: Patient appears in no apparent distress at this time. No changes from lg3 previously documented assessment. Patient and/or family updated on plan of care and expected duration. Pain level reassessed. Patient is alert, oriented x 3, equal unlabored respirations, skin warm/dry/pink. Patient states feeling better. Patient states symptoms have improved. Vital Signs: 02/03 22:56 BP 149 / 101; Pulse 72; Resp 16 S; Temp 98.4(O); Pulse Ox 98% on R/A; Weight 74.84 kg bb (R); Height 5 ft. 4 in. (162.56 cm) (R); Pain 06/17; 02/04 01:10 BP 111 / 93; Pulse 62; Resp 17; Pulse Ox 99% on R/A; lg3 02/03 22:56 Body Mass Index 28.32 (74.84 kg, 162.56 cm) bb ED Course: 02/03 22:34 Patient arrived in ED. jj6 22:55 Nas Gray MD is Attending Physician. rn 22:59 Peggy Grossman, VIKASH is Primary Nurse. lg3 22:59 Triage completed. bb 22:59 Arm band placed on. bb 23:01 EKG completed in triage. Results shown to MD. bb 23:11 Inserted saline lock: 20 gauge in right antecubital area, using aseptic technique. lg3 ,using aseptic technique. by VIKASH Gan. 23:25 Wrist Right 2 View In Process Unspecified. EDMS 23:25 Hand Right 2 View In Process Unspecified. EDMS 23:25 Elbow Right 2 View In Process Unspecified. EDMS 23:26 XRAY Forearm RIGHT In Process Unspecified. EDMS 23:59 Patient has correct armband on for positive identification. Pulse ox on. NIBP on. vc1 02/04 00:12 CT Head Brain wo Cont In Process Unspecified. EDMS 00:53 Orthoglass splint: Volar splint applied on right arm. ds4 01:11 Assist provider with fracture care Immobilized with preformed splint. IV discontinued, lg3 intact, bleeding controlled, No redness/swelling at site. Pressure dressing applied. Administered Medications: 02/03 23:34 Drug: Zofran (Ondansetron) 4 mg Route: IVP; Site: left antecubital; lg3 23:34 Follow up: Response: No adverse reaction lg3 23:39 Drug: Demerol (meperidine) 25 mg Route: IVP; Site: left antecubital; lg3 23:39 Follow up: Response: No adverse reaction lg3 Medication: 02/04 01:12 VIS not applicable for this client. lg3 Outcome: 00:29 Discharge ordered by MD. rn 01:11 Discharged to home ambulatory. lg3 01:11 Condition: stable 01:11 Discharge instructions given to patient, Instructed on discharge instructions, follow up and referral plans. medication usage, Demonstrated understanding of instructions, follow-up care, medications, splint care. 01:12 Patient left the ED. lg3 Signatures: Dispatcher [employer] EDMS Rosemarie Gorman, RN RN bb Nas Gray MD MD rn Swanson, Donovan ds4 Peggy Grossman RN RN lg3 Lili Álvarez RN RN ld1 Celena Henderson jj6 Herlinda Lassiter RN RN vc1 Corrections: (The following items were deleted from the chart) 02/03 22:59 22:43 Chief complaint: ld1 bb
[2022-02-04 01:21] VITALS: TEMP 98.4
[2022-02-04 01:22] VITALS: BP 111/93; O2SAT 99
--- NOTE | 2022-02-04 17:48 | RAD REPORT ---
EXAM DESCRIPTION: CT - Head Brain Wo Cont - 02/04/2022 2:13 am CLINICAL HISTORY: 61 years Female fall, possible head injury, syncope TECHNIQUE: Contiguous axial CT images obtained through the brain without IV contrast. Coronal and sa gittal reformatted images also provided. This CT exam was performed according to our departmental dose-optimization program, which includes on e or more of the following dose reduction techniques: automated exposure control, adjustment of the m A and/or kV according to patient size, and/or use of iterative reconstruction technique. COMPARISON: No prior exams provided for comparison. FINDINGS: There is no acute skull fracture, intracranial hemorrhage, extra-axial collection, or acut e transcortical infarction. The ventricles are normal in size and contour without mass effect or midl ine shift. The visualized paranasal sinuses, tympanomastoid cavities, and orbits are normal. IMPRESSION: No acute intracranial injury. Electronically signed by: Faye Lopez MD 02/04/2022 12:14 AM CDT Due to temporary technical issues with the PACS/Fluency reporting system, reports are being signed by the in house radiologists without review as a courtesy to insure prompt reporting. The interpreting radiologist is fully responsible for the content of the report.
--- NOTE | 2022-02-04 17:49 | RAD REPORT ---
EXAM DESCRIPTION: RAD - Hand Right 2 View - 02/03/2022 11:24 pm CLINICAL HISTORY: 61 years Female PAIN TECHNIQUE: Two views of the right hand are provided. COMPARISON: No prior exams provided for comparison. FINDINGS: There is no acute right hand fracture, dislocation, or foreign body. Visualized joint spac es are preserved. No aggressive osseous lesion. IMPRESSION: No acute findings in the right hand. Electronically signed by: Faye Lopez MD 02/04/2022 12:19 AM CDT Due to temporary technical issues with the PACS/Fluency reporting system, reports are being signed by the in house radiologists without review as a courtesy to insure prompt reporting. The interpreting radiologist is fully responsible for the content of the report.
--- NOTE | 2022-02-04 17:51 | RAD REPORT ---
EXAM DESCRIPTION: RAD - Wrist Right 2 View - 02/03/2022 11:24 pm Wrist Right 2 View CLINICAL HISTORY: 61 years Female PAIN Wrist Right 2 View TECHNIQUE: Two views of the right wrist. COMPARISON: No prior exams provided for comparison. FINDINGS: There is no acute right wrist fracture or dislocation. Carpal alignment is maintained. Vis ualized joint spaces are normal. No aggressive osseous lesions. IMPRESSION: No acute findings in the right wrist. Electronically signed by: Faye Lopez MD 02/04/2022 12:15 AM CDT Due to temporary technical issues with the PACS/Fluency reporting system, reports are being signed by the in house radiologists without review as a courtesy to insure prompt reporting. The interpreting radiologist is fully responsible for the content of the report.
--- NOTE | 2022-02-04 17:52 | RAD REPORT ---
EXAM DESCRIPTION: RAD - Elbow Right 2 View - 02/03/2022 11:25 pm CLINICAL HISTORY: 61 years Female PAIN. TECHNIQUE: Two views of the right elbow COMPARISON: No prior exams provided for comparison. FINDINGS: There is no acute right elbow fracture, dislocation, or joint effusion. Joint spaces appea r normal. There are no aggressive osseous lesions. IMPRESSION: No acute findings in the right elbow. Electronically signed by: Faye Lopez MD 02/04/2022 12:21 AM CDT Due to temporary technical issues with the PACS/Fluency reporting system, reports are being signed by the in house radiologists without review as a courtesy to insure prompt reporting. The interpreting radiologist is fully responsible for the content of the report.
--- NOTE | 2022-02-04 17:53 | RAD REPORT ---
EXAM DESCRIPTION: RAD - Forearm Right - 02/03/2022 11:24 pm CLINICAL HISTORY: 61 years Female PAIN TECHNIQUE: Two views of the right forearm are provided. COMPARISON: No prior exams provided for comparison. FINDINGS: There is no acute right forearm fracture, dislocation, or foreign body. Visualized joint s paces are preserved. No aggressive osseous lesion. IMPRESSION: No acute findings in the right forearm. Electronically signed by: Faye Lopez MD 02/04/2022 12:19 AM CDT Due to temporary technical issues with the PACS/Fluency reporting system, reports are being signed by the in house radiologists without review as a courtesy to insure prompt reporting. The interpreting radiologist is fully responsible for the content of the report.
--- NOTE | 2022-02-06 07:55 | EKG ---
Test Date: 2022-02-03 Test Time: 22:51:41 Silviculturist: JASWINDER MEASUREMENT RESULTS: Intervals: Rate: 77 SD: 210 QRSD: 70 QT: 390 QTc: 441 [place]: P: 32 SD: 210 QRS: 28 T: 47 INTERPRETIVE STATEMENTS: Sinus rhythm with 1st degree AV block Otherwise normal ECG Compared to ECG 07/29/2018 22:05:27 First degree AV block now present Electronically Signed On 02-06-22 07:50:49 CDT by John Mclaughlin
== END 2022-02-04 01:12 | disposition home or self-care (01) ==
LOC: ER 22:32
DX: S60.211A Contusion of right wrist, initial encounter (principal); S60.221A Contusion of right hand, initial encounter; S50.01XA Contusion of right elbow, initial encounter; W01.0XXA Fall on same level from slipping, tripping and stumbling without subsequent striking against object, initial encounter; Y93.01 Activity, walking, marching and hiking; Z88.0 Allergy status to penicillin; Z88.5 Allergy status to narcotic agent; Z91.040 Latex allergy status; Z91.048 Other nonmedicinal substance allergy status; E11.9 Type 2 diabetes mellitus without complications; I10 Essential (primary) hypertension; F17.210 Nicotine dependence, cigarettes, uncomplicated
CPT/HCPCS: 93005; 70450; 73120; 73070; 73090; 73100; 96375; 96374; 99284; J2175; J2405